=== PATIENT | female | born 1960 | race Caucasian/White ===

== ENCOUNTER 2016-12-02 15:32 | Inpatient (IN) | payer OTHER ==
--- NOTE | ~2016-12-02 | CR72 ---
[facility] A Service of [facility] RADIOLOGY TEXT RESULTS PATIENT: ANAYA STOVALL LOCATION: [facility] 564-01 : [birth year] UNIT #: [id number] AGE: [address]: Hu Hampton MD SEX: F ORDER DR: [id number] [facility] [address] [facility]. [place], [place] [address] [id number] I MR#: [id number] Acc #: [id number] NAME: ANAYA STOVALL : 1960 SEX: F STUDY DATE/TIME: 12/14/2016 7:25 UNIT: [facility] ROOM: [facility] STUDY DESCRIPTION: CR Chest Single View Portable Attending Physician: Hu Hampton M.D. Ordering Physician: Hu Hampton M.D. Primary Care Physician: Paolo Mack M.D. MEDICAL IMAGING REPORT This report is preliminary unless electronic signature is present EXAM AP portable chest DATE 12/14/2016 at 07:25 HISTORY 56-year-old female recent history of shortness of breath and respiratory failure. Additional history states infiltration. COMPARISON AP portable chest 12/10/2016. FINDINGS The ill-defined interstitial opacity seen within both lungs appear improved. There is a new band-like subsegmental atelectasis in the right base, however. No dense lung consolidations are identified. Right chest wall eli-catheter extends into the caval atrial junction. Previously described small bilateral pleural effusions are thought to be resolved. Heart size is normal. Improved aeration in the retrocardiac left lower lobe with some residual linear subsegmental atelectasis remaining. Surgical changes within the cervical spine. IMPRESSION 1. Continued interval improvement in interstitial disease in both lungs may represent improving interstitial edema. 2. Resolution of previously described bilateral pleural effusions. 3. Significantly improved aeration of the retrocardiac left lower lobe with subsegmental atelectasis remaining. 4. Development of band-like subsegmental atelectasis in the right lower lobe since 12/10/2016. Dictated by... [facility] A Service of [facility] RADIOLOGY TEXT RESULTS PATIENT: ANAYA STOVALL LOCATION: [facility] 564-01 : [birth year] UNIT #: [id number] AGE: [address]: Hu Hampton MD SEX: F ORDER DR: Alberta Kamara M.D. THIS IS AN ELECTRONICALLY VERIFIED REPORT Alberta Kamara M.D. at 12/15/2016 8:[address] [facility]/kp TD: 12/14/2016 13:08 JOB #: [id number] MEDICAL IMAGING REPORT Page 1 of 1 COPY
--- NOTE | ~2016-12-02 | CO ---
Unit #: [id number] #: [id number] Patient: ANAYA STOVALL [id number] [facility] [address] [facility]. [place], [place] [address] [id number] I MR#: [id number] NAME: ANAYA STOVALL ROOM: 564 Age: 56 Sex: F Admission Date: 12/02/2016 : 1960 Attending Physician: Hu Hampton M.D. Primary Care Physician: Paolo Mack M.D. Consultation Date: 12/07/2016 CONSULTATION REPORT PRIMARY CARE PHYSICIAN Not listed. REASON FOR CONSULTATION Altered mental status. PATIENT IDENTIFICATION This is a 56-year-old female, evaluated in ICU room 16 at [facility]. SOURCE OF INFORMATION Obtained from the patient's medical record and medical staff. HISTORY OF PRESENT ILLNESS This is a 56-year-old female with past medical history of IBS and chronic pain, recent neck surgery, who presents to [facility] with unresponsiveness and hypoglycemia with a blood sugar of 38, admitted for severe sepsis, perforated viscus, acute kidney injury, UTI, acute respiratory failure. She is status post surgery on 12/03/2016 on hospital day 2. Neurology is asked to further evaluate if the patient's mental status is not improving off the ventilator. She was extubated earlier this week. According to family at the bedside, her baseline mental status prior to being ill is that she is alert and oriented x4. She is independent with daily activities of living. Works outside the home at [employer] and is fully oriented and appropriate. At the time of evaluation, the patient is resting in bed comfortably, in no apparent distress. She opens her eyes and visually tracks, but is minimally verbal. Initially does not follow commands, but mimics; however, with further stimulation and with help from physical therapy, she sits up on the side of the bed, initially unsteady but was able to steady herself with persistence. She does answer some questions. She names and identifies and can follow some verbal commands, though she is very slow to respond. She is not oriented to person, place, or time currently. Head CT was done initially on 12/02/2016 on hospital day one, which was without contrast and did not show any demonstrable acute intracranial abnormality. There is mild paranasal sinus mucosal thickening particularly in the bilateral ethmoid sinuses. The patient is unable to contribute to the history or review of systems given her current mental status. PAST MEDICAL HISTORY 1. Admission to [facility] about 6 weeks ago for neck surgery by Dr. Elmer Bustillos with Neurosurgery, records not available. 2. Irritable bowel syndrome. Unit #: [id number] #: [id number] Patient: ANAYA STOVALL 3. Chronic pain. 4. Neck surgery. 5. Hysterectomy. 6. section. 7. Colonoscopy 5+ years ago. 8. Alcohol abuse. FAMILY HISTORY Positive for malignancy per the medical record. SOCIAL HISTORY The patient is , lives with her . She smokes one pack per week of tobacco. She is a daily drinker, has 2 to 3 mixed drinks daily. No reported illicit drug use. ALLERGIES No known drug allergies. HOME MEDICATIONS Include zolpidem, hydrocodone, gabapentin, Flexeril. Hospital medications currently include Zosyn, TPN, Diflucan, Zofran and morphine both p.r.n., Protonix, acetaminophen, IV fluids. REVIEW OF SYSTEMS A 14-point review of systems was attempted, but the patient is unable to contribute to history or review of systems given her mental status. PHYSICAL EXAMINATION VITAL SIGNS: Temperature 97.9. She has been afebrile for the last several days. Her last elevated temperature was on 12/04/2016. Pulse 88, respirations 22, blood pressure 130/71. Looking back at her blood pressure, she was initially hypotensive. She did have some episodes of hypotension with her lowest pressure being on hospital day two of 73/48. She has been normotensive for the last several days. Oxygen saturation 93%. Height 5 feet 6 inches, weight 122 pounds, BMI 20. NEUROLOGIC: The patient is awake. She is alert, but minimally verbal. Slow to answer and follow commands. Please see above. She is not oriented, initially only mimics, but is able to follow verbal commands with further stimulation and persistence. She can name and identify. Speech appears to be clear, but she is slow to respond. She appears to be encephalopathic. Cranial nerve exam, she responds to threats in the primary and peripheral visual sanchez. Eyes are conjugate without ptosis or nystagmus. Extraocular movements are intact. Unable to fully evaluate sensation of face and scalp. Strength of muscles of facial expression is unremarkable. Hearing is intact to voice. Tongue is midline. Unable to fully visualize uvula and palate. Head turning is unremarkable. Shoulder shrug is unremarkable. Neck is supple. Motor exam, she demonstrates normal bulk and tone. Strength is essentially equal as far as her rn ed. She does not fully follow commands when assessing arm and leg strength, but she does move all extremities equally and spontaneously, but unable to fully assess against gravity given her inability to fully cooperate. Gait and Romberg deferred. Reflexes, 1/4. Toes are equivocal. Coordination, unable to fully assess coordination. She initially is unsteady when sitting up and requires assistance, but once she sits up for a minute or two, she is able to hold herself up without falling over. She does not fully follow commands consistently, thus assessing for extremity ataxia is difficult. No tremors or myoclonus seen. Unit #: [id number] #: [id number] Patient: ANAYA STOVALL DIAGNOSTIC STUDIES IMAGING STUDIES: Please see above for CT imaging. LABORATORY RESULTS: Blood cultures final, no growth after 5 days x2 sets. Today CMP shows sodium of 142, potassium 3.3, chloride 103, CO2 of 34, glucose 165, BUN 17, creatinine 0.8, estimated GFR 83.1, calcium 7.5, AST 50, ALT 57, alkaline phosphatase 69, total protein 4.6, albumin 1.9, phosphorus 1.4, magnesium 1.2. Today CBC shows a white count of 11.8, hemoglobin 10, hematocrit 30.2, platelet count 158. Arterial blood gas from 12/06/2016 shows a pH 7.30, pCO2 of 48.5, pO2 of 104. She has had urine culture final, no growth after 48 hours from 12/02/2016. Acetaminophen level less than 10. Salicylate level 9 on arrival. Urine drug screen on arrival was positive for opioids. White count on arrival 10.1. IMPRESSION 1. Toxic and metabolic encephalopathy. 2. Perforated viscus with peritonitis, status post exploratory laparotomy. 3. Acute respiratory failure. 4. Sepsis. 5. Acute kidney injury. 6. Alcohol abuse. 7. Aphasia. PLAN We will observe the patient. If no improvement, we will consider MRI of the brain to rule out hypoxia, the likely toxic and metabolic encephalopathy. Must consider hypoxia in a patient who has presented very critically ill and had episodes of hypotension. She was also intubated and underwent surgery. At this time, she is not a good candidate for an MRI as I do not want to sedate her and she is not able to follow commands. We will give her time and further recommendations to be made pending further clinical course. Again if she does not improve, we will request MRI of the brain to further evaluate. She is improving, but again she is not back to her baseline. Further recommendations to be made pending further clinical course. Case was discussed with Dr. Zhang who agrees with above. Dictated by... Latanya Ely A.P.R.N. for Belinda Godinez/divina TD: 12/10/2016 05:14 JOB #: [id number] CONSULTATION REPORT Page 1 of 1 X Latanya Ely ONION TOPPER X CONSULTATION REPORT
--- NOTE | ~2016-12-02 | EKG ---
PATIENT: ANAYA STOVALL UNIT #: [id number] Ventricular Rate: 100 BPM Atrial Rate: 100 BPM P-R Interval: 128 ms QRS Duration: 96 ms Q-T Interval: 356 ms QTC Calculation(Bezet): 459 ms P [place]: 83 degrees Calculated R [place]: 76 degrees Calculated T [place]: 77 degrees Diagnosis Line: Normal sinus rhythm Diagnosis Line: Normal ECG Diagnosis Line: No previous ECGs available Diagnosis Line: Confirmed by MARK REYES MD ([id number]) on 12/03/2016 Diagnosis Line: 4:46:25 PM INTERPRETING MD: AMY REY
--- NOTE | ~2016-12-02 | CR72 ---
[facility] A Service of [facility] RADIOLOGY TEXT RESULTS PATIENT: ANAYA STOVALL LOCATION: [address]16 : [birth year] UNIT #: [id number] AGE: [address]: Gloria Pena MD SEX: F ORDER DR: [id number] [facility] [address] [facility]. [place], [place] [address] [id number] I MR#: [id number] Acc #: [id number] NAME: ANAYA STOVALL : 1960 SEX: F STUDY DATE/TIME: 12/03/2016 4:35 UNIT: [facility] ROOM: [facility] STUDY DESCRIPTION: CR Chest Single View Portable Attending Physician: Gloria Pena M.D. Ordering Physician: lGoria Pena M.D. Primary Care Physician: Paolo Mack M.D. MEDICAL IMAGING REPORT This report is preliminary unless electronic signature is present EXAM Portable chest INDICATION Follow up surgery, shortness of air. Follow up endotracheal tube. FINDINGS This portable view of the chest is compared with yesterday's study. The endotracheal tube tip is 1 cm above the rianna. Central venous catheter tip is in the superior vena cava. The heart size is normal and the lungs are clear. Dictated by... Wale Blackmon M.D. THIS IS AN ELECTRONICALLY VERIFIED REPORT Wale Blackmon M.D. at 12/03/2016 1:53 PM MISTI/maria elena TD: 12/03/2016 12:22 JOB #: [id number] MEDICAL IMAGING REPORT Page 1 of 1 COPY
--- NOTE | ~2016-12-02 | CR72 ---
[facility] A Service of [facility] RADIOLOGY TEXT RESULTS PATIENT: ANAYA STOVALL LOCATION: [facility] 564-01 : [birth year] UNIT #: [id number] AGE: [address]: Hu Hampton MD SEX: F ORDER DR: [id number] [facility] [address] [facility]. [place], [place] [address] [id number] I MR#: [id number] Acc #: [id number] NAME: ANAYA STOVALL : 1960 SEX: F STUDY DATE/TIME: 12/09/2016 5:55 [facility] STUDY DESCRIPTION: CR Chest Single View Portable Attending Physician: Hu Hampton M.D. Ordering Physician: Italo Almazan M.D. Primary Care Physician: Paolo Mack M.D. MEDICAL IMAGING REPORT This report is preliminary unless electronic signature is present EXAM Portable AP view of the chest COMPARISON 12/07/2016, 08/06/2016. HISTORY 56-year-old female with dyspnea for 2 days. Respiratory failure and sepsis. Patient was found down. FINDINGS Anterior cervical fusion hardware is incompletely imaged but appears grossly stable. There is note of a right subclavian catheter, grossly stable in position with the tip terminating near the cavoatrial junction, possibly in high right atrium. Right internal jugular catheter has been removed. There has been interval removal of gastric suction tube. No evidence of pneumothorax. There has been significant decrease in size of left pleural effusion, now trace to small with decreased size of small right pleural effusion. Diffuse lung opacities also appear to have improved, possibly reflecting atelectasis or pneumonia. Cardiomediastinal silhouette is normal. IMPRESSION Marked improvement in left-sided pleural effusion, now trace with decreased size of small right pleural effusion. Diffuse lung opacities also appear improved, especially the lung bases, reflecting any combination of atelectasis or pneumonia. There has been removal of the right internal jugular catheter and the gastric suction tube with stable position of right subclavian catheter. Dictated by... [facility] A Service of [facility] RADIOLOGY TEXT RESULTS PATIENT: ANAYA STOVALL LOCATION: [facility] 564-01 : [birth year] UNIT #: [id number] AGE: [address]: Hu Hampton MD SEX: F ORDER DR: Lencho Marino M.D. THIS IS AN ELECTRONICALLY VERIFIED REPORT Lencho Marino M.D. at 12/14/2016 8:58 PM BLM/pcl TD: 12/09/2016 10:10 JOB #: [id number] MEDICAL IMAGING REPORT Page 1 of 1 COPY
--- NOTE | ~2016-12-02 | OR ---
Unit #: [id number] #: [id number] Patient: ANAYA STOVALL [id number] [address] [place], [place] [address] [id number] I MR#: [id number] NAME: ANAYA STOVALL ROOM: 564 Date of Procedure: 12/11/2016 Admission Date: 12/02/2016 Surgeon: Glenn Calderon M.D. : 1960 Attending Physician: Hu Hampton M.D. Primary Care Physician: Paolo Mack M.D. PROCEDURE OPERATIVE NOTE INDICATION FOR PROCEDURE Pneumonia. PROCEDURE PERFORMED Diagnostic and therapeutic bronchoscopy with bronchial washing. FINDINGS Extensive amount of large thick greenish mucus plugs at the level of the mid trachea, rianna, right main bronchus, right lower lobe, left lower lobe and lingula. ANESTHESIA MAC anesthesia. PROCEDURE An informed consent was obtained from the after explaining the benefits and risks of this procedure. The patient was prepped and positioned in appropriate way. The bronchoscope was advanced through the oral cavity and at the level of the vocal cord 1% lidocaine was instilled and the bronchoscope was advanced through the vocal cord inside the trachea, which appeared normal except for copious amount of thick mucus secretion, which was lavaged and aspirated. Then at the level of the rianna and bronchus lidocaine was instilled and again a copious amount of secretion was noted, which was lavaged. Then the bronchoscope was advanced to the right main bronchus and the right upper lobe, right middle lobe and right lower lobe were examined thoroughly and appeared normal in terms of mucosa, but the patient also had a lot of secretions which were lavaged and the bronchoscope was retracted and then readvanced into the left main bronchus. The left lower lobe appeared erythematous with extensive amount of plug that was also lavaged and aspirated. The lingula and left upper lobe also were examined. The bronchoscope was retracted then and the patient tolerated her procedure well. Bronchial lavage was obtained from the left lower lobe, which will be sent for microbiology. Dictated by... Glenn Calderon M.D. EA/gz Unit #: [id number] #: [id number] Patient: ANAYA STOVALL TD: 12/12/2016 09:46 JOB #: [id number] PROCEDURE OPERATIVE NOTE Page 1 of 1 X GLENN CRUZ MD PROCEDURE OPERATIVE NOTE
--- NOTE | ~2016-12-02 | CR264 ---
[facility] A Service of [facility] RADIOLOGY TEXT RESULTS PATIENT: ANAYA STOVALL LOCATION: [address]-16 : [birth year] UNIT #: [id number] AGE: [address]: Hu Hampton MD SEX: F ORDER DR: [id number] [address] [place], [place] [address] [id number] I MR#: [id number] Acc #: [id number] NAME: ANAYA STOVALL : 1960 SEX: F STUDY DATE/TIME: 12/05/2016 14:45 UNIT: [facility] ROOM: [facility] STUDY DESCRIPTION: CR Upper GI Series W KUB Attending Physician: Hu Hampton M.D. Ordering Physician: Noble Tenorio M.D. Primary Care Physician: Paolo Mack M.D. MEDICAL IMAGING REPORT This report is preliminary unless electronic signature is present EXAM NG tube insertion under fluoroscopy HISTORY Unable to pass the feeding tube PROCEDURE The patient was explained the procedure and informed written consent obtained. Under fluoroscopic control, a nasogastric tube was inserted through the right nares and advanced into the gastric antrum without difficulty. Spot radiograph was obtained confirming position. A single spot radiograph was obtained. Total fluoroscopy time was 0.3 minutes. Dictated by... Noble Gonzáles M.D. THIS IS AN ELECTRONICALLY VERIFIED REPORT Noble Gonzáles M.D. at 12/07/2016 7:14 AM VIJAY/kp TD: 12/06/2016 12:51 JOB #: [id number] MEDICAL IMAGING REPORT Page 1 of 1 COPY
--- NOTE | ~2016-12-02 | CT4 ---
[facility] A Service of [facility] & [facility] RADIOLOGY TEXT RESULTS PATIENT: ANAYA STOVALL LOCATION: [address]16 : [birth year] UNIT #: [id number] AGE: [address]: Hu Hampton MD SEX: F ORDER DR: [id number] [facility] [address] [place], [place] [address] [id number] I MR#: [id number] Acc #: [id number] NAME: ANAYA STOVALL : 1960 SEX: F STUDY DATE/TIME: 12/02/2016 18:02 UNIT: [facility] ROOM: [facility] STUDY DESCRIPTION: CT Abd and Pelv Wo Cont Attending Physician: Gloria Pena M.D. Ordering Physician: Mulu Sanchez M.D. Primary Care Physician: Paolo Mack M.D. MEDICAL IMAGING REPORT This report is preliminary unless electronic signature is present EXAM CT of the abdomen and pelvis without contrast dated 12/02/2016 COMPARISON Single view of the abdomen dated 12/02/[address] chest without contrast dated 12/02/2016. HISTORY Patient is unresponsive and probably had GI bleed today. FINDINGS CT of the abdomen and pelvis were obtained without IV or oral contrast, in the axial plane followed by sagittal and coronal reformats. This CT exam was performed with one or more of the following radiation dose reduction techniques: automatic control, adjustment of mA and/or kV according to patient size, and iterative reconstruction. There are large quantities of free fluid noted in the abdomen and in the pelvis. Large free intraperitoneal air is also seen. There are predominantly nondistended colonic loops. Some slightly distended small bowel loops are noted in the mid abdomen. A definitive site of perforation could not be discerned in the current study. Lack of IV contrast limits evaluation of solid organs. Grossly the liver, adrenal glands, pancreas and the kidneys do not demonstrate any significant abnormality. Small spleen is seen. There is slightly hyperdense gallbladder which could be related to dense bile within it or mild hemorrhage within it. The free air is predominantly noted intraperitoneally and in upper to mid abdomen with relative decrease in the lower abdomen. No obvious aneurysmal dilatation is seen. Mild degenerative changes are noted in the spine. PELVIS: Galvan catheter decompresses the urinary bladder. Rectosigmoid colon appears to be grossly intact with significant free fluid around it. [facility]. [facility] A Service of [facility] & [facility] RADIOLOGY TEXT RESULTS PATIENT: ANAYA STOVALL LOCATION: [facility]3-16 : 62 UNIT #: [id number] AGE: [address]: Hu Hampton MD SEX: F ORDER DR: IMPRESSION 1. Significantly abnormal study. 2. Large amounts of free intraperitoneal air and large amount of free fluid are noted in the abdomen and pelvis most suspicious for perforation of the hollow viscus. 3. There is not much free air or fluid noted in the retroperitoneum. 4. Increased density is noted within the gallbladder. It could be related to dense bile or some hemorrhage within it. No well-defined calcifications to suggest gallstones. 5. Refer to the detailed report. 6. Findings were discussed with Dr. Mulu Sanchez at 07:10 p.m. on 12/02/2016. Dictated by... Jose Mishra M.D. THIS IS AN ELECTRONICALLY VERIFIED REPORT Jose Mishra M.D. at 12/04/2016 5:09 PM CPR/rnr TD: 12/03/2016 03:14 JOB #: [id number] MEDICAL IMAGING REPORT Page 1 of 1 COPY
--- NOTE | ~2016-12-02 | EKG ---
PATIENT: ANAYA STOVALL UNIT #: [id number] Ventricular Rate: 108 BPM Atrial Rate: 108 BPM P-R Interval: 116 ms QRS Duration: 82 ms Q-T Interval: 382 ms QTC Calculation(Bezet): 511 ms P [place]: 70 degrees Calculated R [place]: 63 degrees Calculated T [place]: 72 degrees Diagnosis Line: Sinus tachycardia Diagnosis Line: Prolonged QT Diagnosis Line: Abnormal ECG Diagnosis Line: When compared with ECG of 02-DEC-2016 16:13, Diagnosis Line: QRS voltage has decreased Diagnosis Line: QT has lengthened Diagnosis Line: Confirmed by DARYL MOORE MD ([id number]) on Diagnosis Line: 12/04/2016 5:51:30 PM INTERPRETING MD: ALEXANDER
--- NOTE | ~2016-12-02 | CO ---
Unit #: [id number] #: [id number] Patient: ANAYA STOVALL [id number] [address] [address] [id number] I MR#: [id number] NAME: ANAYA STOVALL ROOM: [facility] Age: 56 Sex: F Admission Date: 12/02/2016 : 1960 Attending Physician: Gloria Pena M.D. Primary Care Physician: Paolo Mack M.D. CONSULTATION REPORT REASON FOR CONSULTATION Respiratory failure, critical care management. CHIEF COMPLAINT Unresponsiveness and possible GI bleed. 56-year-old female with a past medical history of irritable bowel syndrome, chronic pain, presented with a complaint of unresponsiveness. According to the hospital, she was complaining of vomiting and not feeling well two days ago. Helped her to the bathroom and she passed out and was brought to the emergency room. Was found to be severely hypoxic and was intubated. Temperature is 94. The patient has a pH of 6.89 and currently on a ventilator, sedated, intubated and being resuscitated. I am seeing her at the bedside. REVIEW OF SYSTEMS Unobtainable. PAST MEDICAL HISTORY 1. Irritable bowel syndrome. 2. Chronic pain. SURGICAL HISTORY 1. Neck surgery. 2. Hysterectomy. 3. . 4. Colonoscopy. SOCIAL HISTORY Smokes a pack of cigarettes per day. Daily drinker. FAMILY HISTORY Positive for malignancy. ALLERGIES No known drug allergies. MEDICATIONS 1. Zolpidem. 2. Hydrocodone. 3. Gabapentin. 4. Flexeril. PHYSICAL EXAMINATION Unit #: [id number] #: [id number] Patient: ANAYA STOVALL VITAL SIGNS: Temperature currently is 93, pulse is 140, respirations 16, blood pressure is 90/70. NEUROLOGICAL: Sedated, intubated. CVS: S1+ S2. RESPIRATIONS: Bilateral air entry, bilateral mild rhonchi. GI: Distended. Bowel sounds sluggish. EXTREMITIES: No edema. DIAGNOSTIC STUDIES Labs and imaging pending. ASSESSMENT AND PLAN 1. Acute respiratory failure. 2. Unresponsiveness. 3. Severe acidosis. 4. Acute renal failure. 5. Likely perforated viscus. 6. Hyperkalemia. 7. Urinary tract infection. 8. Chronic pain. 9. Tobacco use. Plan is to continue ventilator support. IV fluids, IV antibiotics. Surgical and nephrology consultation. GI and DVT prophylaxis. Please see orders for additional plan. Thank you very much for this consultation. We will continue to follow patient. Dictated by... Belinda Dunaway TD: 12/03/2016 12:43 JOB #: [id number] CONSULTATION REPORT Page 1 of 1 X Rei Ryan MD X CONSULTATION REPORT
--- NOTE | ~2016-12-02 | CR72 ---
[facility] A Service of [facility] RADIOLOGY TEXT RESULTS PATIENT: ANAYA STOVALL LOCATION: [facility] : [birth year] UNIT #: [id number] AGE: [address]: Hu Hampton MD SEX: F ORDER DR: [id number] [facility] [address] [place], [place] [address] [id number] I MR#: [id number] Acc #: [id number] NAME: ANAYA STOVALL : 1960 SEX: F STUDY DATE/TIME: 12/03/2016 13:06 UNIT: [facility] ROOM: [facility] STUDY DESCRIPTION: CR Chest Single View Portable Attending Physician: Gloria Pena M.D. Ordering Physician: Rei Ryan M.D. Primary Care Physician: Paolo Mack M.D. MEDICAL IMAGING REPORT This report is preliminary unless electronic signature is present EXAM Portable chest 12/03/16 COMPARISON Same date. HISTORY Shiley catheter placement. TECHNIQUE An AP view is obtained. FINDINGS Cardiac size in the patient is stable examination shows consolidation and volume loss at the left base. Lungs otherwise are clear. There is a new right-sided Shiley with the tip at the cavoatrial junction. Right-sided subclavian line terminates at the cavoatrial junction as well. ET tube and NG tube are in good position. CONCLUSION Interim insertion of a right-sided shallow with the tip at the cavoatrial junction. No pneumothorax. Dictated by... Noble Gonzáles M.D. THIS IS AN ELECTRONICALLY VERIFIED REPORT Noble Gonzáles M.D. at 12/07/2016 7:15 AM VIJAY/robert TD: 12/03/2016 20:53 [facility] A Service of [facility] RADIOLOGY TEXT RESULTS PATIENT: ANAYA STOVALL LOCATION: [facility]316 : [birth year] UNIT #: [id number] AGE: [address]: Hu Hampton MD SEX: F ORDER DR: JOB #: [id number] MEDICAL IMAGING REPORT Page 1 of 1 COPY
--- NOTE | ~2016-12-02 | CO ---
Unit #: [id number] #: [id number] Patient: ANAYA CHRISTENSEN [id number] [address] [place], [place] [address] [id number] I MR#: [id number] NAME: ANAYA CHRISTENSEN ROOM: [facility] Age: 56 Sex: F Admission Date: 12/02/2016 : 1960 Attending Physician: Hu Hampton M.D. Primary Care Physician: Paolo Mack M.D. Consultation Date: 12/03/2016 CONSULTATION REPORT REASON FOR CONSULTATION Acute renal failure. HISTORY OF PRESENT ILLNESS Ms. Frannie Christensen is a 56-year-old white female with a past medical history of irritable bowel syndrome and chronic pain, on opioids, who presented to the hospital with a shock. The story is, the patient had been having her typical irritable bowel symptoms and then went to bed. The pain that she had was described as starting on 11/30/2016. She asked her to help her to the bathroom. When he did, that she passed out. EMS was called and she had to be intubated in the field. Her presenting ABG to the emergency room showed a pH of 6.89, pCO2 of 56, pO2 of 301. Her presenting BUN and creatinine were 78 and 4.7. Her lactic acid was 11.4. Her anion gap was 29. CT scan of the abdomen showed free air in the abdomen. She was already intubated, continued on the vent and pressor support. She was given about 5 amps of sodium bicarbonate and her next ABG had improved. She was continued on normal saline fluid resuscitation. She did not require any blood products. Surgery was consulted immediately, but she was unstable to take to surgery. Overnight, she continued in the ICU with pressor support and IV fluids. She has made roughly 200 mL of urine with about 5 L of input. PAST MEDICAL HISTORY 1. Irritable bowel syndrome. 2. Chronic pain. 3. Tobacco abuse. PAST SURGICAL HISTORY 1. Recent neck surgery at [facility] with Dr. Bustillos. 2. Hysterectomy. 3. History of . 4. Colonoscopy 5 years ago. SOCIAL HISTORY The patient is . Lives with her . She smokes one pack of cigarettes per week. She drinks 2 to 3 mixed drinks every day. FAMILY HISTORY There is a family history of cancer. HOME MEDICATIONS Include Flexeril, gabapentin, hydrocodone, zolpidem. Unit #: [id number] #: [id number] Patient: ANAYA CHRISTENSEN REVIEW OF SYSTEMS Unobtainable. DIAGNOSTIC STUDIES IMAGING STUDIES: A CT of the chest shows a large amount of free air within the abdomen. LABORATORY RESULTS: Shows an ABG of 7.477, pCO2 of 30, PO2 of 82, bicarbonate of 22. Glucose of 94, BUN 77, creatinine 3.8, sodium 134, potassium 4.6, chloride 96, bicarbonate 21, calcium 6, phosphorus 6.7, magnesium 1.6, albumin is 1.8. CPK total is 3302. Lactic acid is 3.2. Current CBC; white blood cell count 6.2, hemoglobin 12.6, hematocrit 37.4, platelet count 282. Tox screen shows positive opioids, the rest negative. Urinalysis showed negative nitrites, trace leukocyte esterase, 3+ protein, 3+ blood, red blood cells 5 to 10, white blood cell count 10 to 25. Current medicines are Zosyn and Levophed. DICTATION ENDS HERE Please note: This report has been placed on the patient's electronic medical record in an incomplete status following multiple physician notifications for a completion without a response or resolution. Dictated by... Brittney Porter M.D. ALMA/divina TD: 12/04/2016 08:17 JOB #: [id number] CONSULTATION REPORT Page 1 of 1 X Brittney Porter MD X CONSULTATION REPORT
--- NOTE | ~2016-12-02 | CR6 ---
[facility] Service of [facility] & [facility] RADIOLOGY TEXT RESULTS PATIENT: ANAYA STOVALL LOCATION: [facility] 564-01 : [birth year] UNIT #: [id number] AGE: [address]: Hu Hampton MD SEX: F ORDER DR: [id number] [facility] [address] [place], [place] [address] [id number] I MR#: [id number] #: [id number] NAME: ANAYA STOVALL : 1960 SEX: F STUDY DATE/TIME: 12/02/2016 16:19 UNIT: [facility] ROOM: [facility] STUDY DESCRIPTION: CR Abdomen Portable Sng View Attending Physician: Hu Hampton M.D. Ordering Physician: Mulu Sanchez M.D. Primary Care Physician: Paolo Mack M.D. MEDICAL IMAGING REPORT This report is preliminary unless electronic signature is present REVISED REPORT SEE ADDENDUM EXAM Single view of the abdomen dated 12/02/[address] abdomen pelvis dated 07/22/2002 and single view of the chest dated 12/02/2016. HISTORY NG tube placement. FINDINGS Single view of the abdomen was obtained. There is an NG tube which extends past the GE junction to the region of the mid body of the stomach. There is nonspecific but nonobstructive bowel gas pattern seen. Bones do not demonstrate any significant abnormality. There are thin linear opacities noted in the region of the right upper quadrant of the abdomen, in the region of the liver. It is of uncertain clinical significance based on this modality. No obvious abnormality was discerned in the CT abdominal study from 2002, like calcifications in this region. Depending on clinical concern for acute abdominal findings CT can be considered. The NG tube itself appears to be adequate in position. Dictated by... Jose Mishra M.D. THIS IS AN ELECTRONICALLY VERIFIED REPORT Jose Mishra M.D. at 12/04/2016 5:09 PM CPR/rnr TD: 12/02/2016 23:33 [facility] A Service of [facility] & [facility] RADIOLOGY TEXT RESULTS PATIENT: ANAYA STOVALL LOCATION: [facility] 564-01 : [birth year] UNIT #: [id number] AGE: [address]: Hu Hampton MD SEX: F ORDER DR: JOB #: [id number] ADDENDUM There are air pockets noted in the lateral and upper aspect of the right side of the abdomen which though could represent colonic air, it could also be free air. It is unclear if this image was obtained in the supine or upright position. No free air is seen immediately under the diaphragm. STAT * RESULT Dictated by... Jose Mishra M.D. THIS IS AN ELECTRONICALLY VERIFIED REPORT Jose Mishra M.D. at 12/11/2016 8:30 PM CPR/rnr TD: 12/07/2016 18:27 JOB #: [id number] CC: Nae/socrates Please Delete MEDICAL IMAGING REPORT Page 1 of 1 COPY
--- NOTE | ~2016-12-02 | FU ---
[facility] Nutrition Therapy DATE: 12/11/16 Patient: ANAYA STOVALL Physician: ALISSA Address: [address] Room/Bed: [address] [place] [address], Zip: [place] [address] Admit Date: 12/02/16 Date of : [birth year] Height: 5 6 Weight: 126 57.4 NUTRITION MONITORING/FOLLOW-UP: Reason: PT SEEN FOR TPN FOLLOW-UP DX: UNRESPONSIVENESS, PERFORATED DUODENAL ULCER S/P EXPLORATORY LAPAROTOMY AND REPAIR Anthropometrics: 5'6", WT: 126# (57 KG), BMI: 20.3 -WEIGHTS HAVE BEEN STABLE SINCE ADMIT Labs: GLU: 155, CREAT: 0.5, CA+:7.8, ALB: 2.2, AST: 51, ALT: 68, TGs: 273, LIPASE: 69 Meds: TPN, MAG SULFATE, ZOFRAN, KCL, PROTONIX I&O's: 2940/2475 Skin: PREVIOUSLY MENTIONED-MIDLINE SURGICAL INCISION TO ABD Estimated Nutrition Needs: [phone] KCAL 95-114 G PRO Assessment: CHART REVIEWED AND EVENTS NOTED. PT SEEN FOR TPN FOLLOW-UP. PT IS S/P BRONCHOSCOPY THIS AM. PT RECEIVING TPN (DAY 5 2'PERFORATED BOWEL) 25% DEXTROSE/5% AA @ 75 ML/HR W/NO LIPIDS. PT ALSO RECEIVING MECHANICAL GROUND + THIN LIQUIDS. PER FAMILY, PT TOOK BITES OF LUNCH MEAL TODAY. PT SLEEPY/LETHARGIC AT TIME OF VISIT. RD ENCOURAGED SLOW GRADUAL PO INTAKE + SUPPLEMENTS, PT AGREED TO MAGIC CUP BID W/MEALS. RD TO ORDER. FAMILY REPORTED NO DIET QUESTIONS AT THIS TIME. RD TO CONTINUE TO FOLLOW. Dx: INADEQUATE PROTEIN-ENERGY INTAKE R/T CLINICAL CONDITION, BOWEL SURGERY AEB NPO STATUS.-IN PROGRESS Intervention: 1. TPN 2. MECHANICAL GROUND DIET + THINS 3. MAGIC CUP BID + 6 SMALL MEALS Monitoring, Evaluation and Goals: 1. ENTERAL NUTRITION; INITIATE, PROVIDE >80% GOAL VOLUME X 24 HOURS-NOT ACTIVE 2. IMPROVE LABS; BUN, CREAT, NA+, AST, ALT, TRIG, LIPASE, GFR-IN PROGRESS 3. GI; PROMOTE REGULAR GI FUNCTION-NOT MET 4. SKIN; PROMOTE HEALING-IN PROEGRESS 5. WEIGHT; PREVENT UNINTENTIONAL WEIGHT LOSS-IN PROEGRESS 6. TPN; TOLERATE/RECEIVE >80% ESTIMATED NEEDS-IN PROGRESS/MET NO NEW GOALS MONITOR: [facility] Nutrition Therapy DATE: 12/11/16 Patient: ANAYA STOVALL Physician: ALISSA Address: [address] Room/Bed: [address] [place] [address], Zip: [place] [address] Admit Date: 12/02/16 Date of : [birth year] Height: 5 6 Weight: 126 57.4 -TPN RATE/TOLERANCE -WEIGHTS -ORAL INTAKE/APPETITE? -LABS Recommendations: 1. ENCOURAGE SLOW GRADUAL PO INTAKE PER PT TOLERANCE. ORDER MAGIC CUP BID W/MEALS + 6 SMALL MEALS 2. CONTINUE CURRENT TPN 25% DEXTROSE, 5% AA @ 75 ML/HR -PROVIDES 90 G PRO, 1530 NON-PROTEIN KCAL, 1890 TOTAL KCAL (GUR: 4.9) WEAN TPN IF PT CONSUME ~50% OF MEALS 3. RECOMMEND TO HOLD LIPIDS. TGs NOTED TO BE 273 (ELEVATED-12/03/16). 4. CONTINUE TO MONITOR ELECTROLYTES AND GLUCOSE LEVELS CLOSELY. RD WILL F/U PER PROTOCOL PT IS MOD/SEVERELY COMPROMISED Respectfully, KEISHA AMES MS, RD, LD [facility] cc: client file
--- NOTE | ~2016-12-02 | A ---
[facility] Nutrition Therapy DATE: 12/04/16 Patient: ANAYA STOVALL Physician: ALISSA Address: [address] Room/Bed: [address], Zip: [place] [address] Admit Date: 12/02/16 Date of : [birth year] Height: 5 6 Weight: 139 63.5 NUTRITIONAL ASSESSMENT: REASON: NPO status in ICU 56 yo female admitted for unresponsiveness and perforated duodenal ulcer s/p exploratory laparatomy and repair PMH: IBS, chronic pain, neck surgery, smoker, daily drinker (2-3 drinks/day) Anthropometrics: Ht: 5'6" Wt: 63.5 kg BMI: 22.6 Labs: Na+ 131 BUN 38 Creat 2.3 Ca++ 5.9 AST 142 ALT 91 Accuchecks 79 Trig 273 Lipase 69 GFR 23.2 Meds: Fentanyl, NaCl, versed, D5%, MgSO4, protonix, zofran, phenergan I/O & Bowel function: 8677/990, last BM unknown, NGT Skin Integrity: Midline surgical incision to abdomen Edema: none noted Estimated Nutrition Needs: 5841-8245 kcals (25-30 kcals/kg) 95-114 grams protein (1.5-1.8 grams/kg) Assessment: Chart reviewed, events noted. Pt admitted for being found unresponsive and for perforated duodenal ulcer now intubated and sedated in the ICU, off pressors now. Sepsis and PARRIS also noted. Pt had 3 hrs of CRRT last night per RN report. Per renal MD note, pt will not receive HD today. BUN and creatinine have improved. Per RN report, the pt has bile content in her abdominal cavity. No family is in the room to provide nutritional history at this time. Per MD note, the pt had decreased appetite and abdominal pain since 11/30/16. NGT is not to suction at this time. Dx: Inadequate protein-energy intake RT clinical condition, bowel surgery AEB NPO status. Intervention: 1. EN once feasible Monitoring, Evaluation and Goals: 1. Enteral nutrition; initiate, provide >80% goal volume x 24 hrs 2. Improve labs; BUN, creat, Na+, AST, ALT, trig, lipase, GFR [facility] Nutrition Therapy DATE: 12/04/16 Patient: ANAYA STOVALL Physician: ALISSA Address: [address] Room/Bed: [address], Zip: [place] [address] Admit Date: 12/02/16 Date of : [birth year] Height: 5 6 Weight: 139 63.5 3. GI; promote regular GI function 4. Skin; promote healing 5. Weight; prevent unintentional weight loss Recommendations: 1. Once the pt is hemodynamically stable, recommend initiating enteral nutrition with Vital 1.5 @ 15 mL/hr + 30 mL Prostat once daily. Increase by 10 mL q 8 hrs as tolerated to goal of 50 mL/hr + 30 mL Prostat once daily to provide: 1900 kcals/ 96 grams protein/ 912 mL free H20. 2. RD will continue to follow and make appropriate recommendations based on hospital course. Pt is at severe nutritional risk. RD will follow up per protocol. Respectfully, SUNIL WHELAN RD, LD [facility] cc: client file
--- NOTE | ~2016-12-02 | CR72 ---
[facility] A Service of [facility] & [facility] RADIOLOGY TEXT RESULTS PATIENT: ANAYA STOVALL LOCATION: [facility] 564-01 : 62 UNIT #: [id number] AGE: [address]: Hu Hampton MD SEX: F ORDER DR: [id number] [facility] [address] [place], [place] [address] [id number] I MR#: [id number] #: [id number] NAME: ANAYA STOVALL : 1960 SEX: F STUDY DATE/TIME: 12/07/2016 8:00 UNIT: [facility] ROOM: [facility] STUDY DESCRIPTION: CR Chest Single View Portable Attending Physician: Hu Hampton M.D. Ordering Physician: Yulissa Calderon M.D. Primary Care Physician: Paloo Mack M.D. MEDICAL IMAGING REPORT This report is preliminary unless electronic signature is present EXAM Portable chest x-ray 12/07/2016 HISTORY Chest congestion. FINDINGS AP radiograph of the chest presented. Comparison 12/04/2016. There is a marked worsening in appearance of the thorax compared to prior study. Right internal jugular approach and subclavian approach central venous catheters are unchanged. Bikfqyiy-hi-fezkj right pleural effusion. Large left pleural effusion. These appear new compared to prior examination. Extensive bilateral airspace disease. Complete opacification of the lower half of the left hemithorax felt secondary to combination of airspace disease and the large effusion. Overall appearance suggests severe pulmonary edema with extensive interstitial airspace and pleural space components. Bilateral overwhelming pneumonia and parapneumonic effusions could be considered in the appropriate clinical context. There is no pneumothorax. Enteric tube extends below diaphragm and off field of radiograph. Patient has been extubated in the interval from prior study. Visualized cervical spine fixation hardware unchanged. No acute-appearing bony abnormality. Dictated by... Noble Landeros M.D. THIS IS AN ELECTRONICALLY VERIFIED REPORT Noble Landeros M.D. at 12/13/2016 10:15 AM SHER/maria elena TD: 12/07/2016 10:28 JOB #: [id number] [facility] A Service of [facility] & [facility] RADIOLOGY TEXT RESULTS PATIENT: ANAYA STOVALL LOCATION: [facility] 564-01 : [birth year] UNIT #: [id number] AGE: [address]: Hu Hampton MD SEX: F ORDER DR: MEDICAL IMAGING REPORT Page 1 of 1 COPY
--- NOTE | ~2016-12-02 | CT71 ---
[facility] A Service of [facility] RADIOLOGY TEXT RESULTS PATIENT: ANAYA STOVALL LOCATION: [address]16 : [birth year] UNIT #: [id number] AGE: [address]: Hu Hampton MD SEX: F ORDER DR: [id number] [facility] [address] [place], [place] [address] [id number] I MR#: [id number] Acc #: [id number] NAME: ANAYA STOVALL : 1960 SEX: F STUDY DATE/TIME: 12/02/2016 17:47 UNIT: [facility] ROOM: [facility] STUDY DESCRIPTION: CT Head Wo Contrast Attending Physician: Gloria Pena M.D. Ordering Physician: Mulu Sanchez M.D. Primary Care Physician: Paolo Mack M.D. MEDICAL IMAGING REPORT This report is preliminary unless electronic signature is present EXAM CT head without contrast dated 12/02/2016. COMPARISON None. HISTORY Unresponsive and possible GI bleed today. Patient was brought in ambulance today with blood sugar of 38. Patient is on vent. FINDINGS CT of the head was obtained without contrast in the axial plane. This CT exam was performed with one or more of the following radiation dose reduction techniques: automatic control, adjustment of mA and/or kV according to patient size, and iterative reconstruction. No acute intracranial hemorrhage, space-occupying mass, mass effect, midline shift or hydrocephalus. There is mild paranasal sinus mucosal thickening. Imaged mastoid air cells are well-aerated. Orbits and the ocular structures do not demonstrate any significant abnormality. Bones are within normal limits. IMPRESSION 1. No demonstrable acute intracranial abnormality. 2. Mild paranasal sinus mucosal thickening particularly in bilateral ethmoid sinuses. Dictated by... Jose Mishra M.D. THIS IS AN ELECTRONICALLY VERIFIED REPORT Jose Mishra M.D. at 12/04/2016 5:09 PM CPR/rnr [facility] A Service [facility] RADIOLOGY TEXT RESULTS PATIENT: ANAYA STOVALL LOCATION: [facility] CICCU3-16 : 62 UNIT #: [id number] AGE: [address]: Hu Hampton MD SEX: F ORDER DR: TD: 12/03/2016 00:37 JOB #: [id number] MEDICAL IMAGING REPORT Page 1 of 1 COPY
--- NOTE | ~2016-12-02 | DS ---
Unit #: [id number] #: [id number] Patient: ANAYA STOVALL [id number] [facility]. [place], [place] [address] [id number] I MR#: [id number] NAME: ANAYA STOVALL ROOM: 564 Age: 56 Sex: F Admission Date: 12/02/2016 : 1960 Discharge Date: 12/14/2016 Attending Physician: Hu Hampton M.D. Primary Care Physician: Paolo Mack M.D. DISCHARGE SUMMARY REASON FOR ADMISSION Unresponsive, blood sugar 38, GI bleed, sepsis present on admission secondary to hypovolemic shock. HISTORY OF PRESENT ILLNESS/HOSPITAL COURSE The patient is a 56-year-old female with an underlying history of irritable bowel syndrome, chronic pain, who presented with above. Please see H and P for complete details. Initial CT of the chest showed a large amount of free air that was present within the abdomen. Subsequently, patient was intubated after she was noted to be acutely acidotic and having acute hypoxic/hypercapnic respiratory failure. She was placed in ICU. Consultation was placed to [facility] initially secondary to concern for free air was well as possible perforated viscus. The patient underwent exploratory laparotomy by Dr. Draper. Please see his procedure note for complete details. After exploratory laparotomy, the patient had a postoperative diagnosis of perforated duodenal ulcer with massive spillage of bile and bile-stained contents within the abdomen. Through and postoperative, patient otherwise did well. She was gradually weaned off of ventilator. Consultation was placed to Dr. Ryan of intensive care services. Pulmonary services continued to follow the patient through her hospital course for the same. The patient ultimately underwent bronchoscopy secondary to acute respiratory failure. These ultimately did show MRSA in her bronch culture. ID services were consulted in light of antibiotic management and peritonitis. ID services have stated the patient has now completed all antibiotic course. No further antibiotics are required. Cardiac enzymes subsequently were elevated with a troponin of 0.48. Cardiology services were consulted. Dr. Ramos and associates saw and evaluated patient. No acute cardiac intervention was performed this hospital admission. It was felt it was likely secondary to hypotension. Unit #: [id number] #: [id number] Patient: ANAYA STOVALL The patient was gradually extubated, placed on telemetry floor. PT/OT services continued to work with the patient. She was transitioned from TPN to a regular diet. At this point in time, she is currently tolerating diet well. She is working with physical and occupational therapy and she appears clinically stable for transition to rehab facility. Moving forward, patient was strongly encouraged to abstain from alcohol as she has had alcohol abuse in the past. FINAL DISCHARGE DIAGNOSES 1. Septic shock, present on admission secondary to hypovolemia. 2. Perforated duodenal ulcer with resultant peritonitis, status post exploratory laparotomy with resultant repair. 3. Acute rhabdomyolysis, now resolved. 4. Acute hypoxic/hypercapnic respiratory failure, now resolved. 5. Acute kidney injury on admission, resolved. 6. Liver shock/transaminitis, now resolved. 7. Hypotension. 8. Lactic acidosis. 9. Elevated troponin. 10. Alcohol abuse. 11. Chronic deconditioning. Please note - the discharge laboratory studies do show a hemoglobin of 9.2 representing patient's baseline. BMP is otherwise unremarkable. The patient will be transitioned to rehab for ongoing care later this afternoon. FINAL DISCHARGE MEDICATIONS 1. Cymbalta 30 mg p.o. q. a.m. 2. Remeron 15 mg p.o. q. h.s. 3. Lortab 7.5/325, one tablet p.o. q.4 p.r.n. 4. Protonix 40 mg p.o. b.i.d. DISCHARGE CONDITION Stable. DISCHARGE DISPOSITION Rehab for ongoing care. Dictated by... Belinda Villeda/paul TD: 12/14/2016 12:34 JOB #: [id number] Unit #: [id number] #: [id number] Patient: ANAYA STOVALL DISCHARGE SUMMARY Page 1 of 1 X Hu Hampton MD X DISCHARGE SUMMARY
--- NOTE | ~2016-12-02 | CR63 ---
[facility] A Service of [facility] & [facility] RADIOLOGY TEXT RESULTS PATIENT: ANAYA STOVALL LOCATION: [facility] 564-01 : [birth year] UNIT #: [id number] AGE: [address]: Hu Hampton MD SEX: F ORDER DR: [id number] [facility] [address] [facility]. [place], [place] [address] [id number] I MR#: [id number] #: [id number] NAME: ANAYA STOVALL : 1960 SEX: F STUDY DATE/TIME: 12/10/2016 10:55 UNIT: [facility] ROOM: [facility] STUDY DESCRIPTION: CR Chest 2 View Attending Physician: Hu Hampton M.D. Ordering Physician: Rei Ryan M.D. Primary Care Physician: Paolo Mack M.D. MEDICAL IMAGING REPORT This report is preliminary unless electronic signature is present EXAM PA and lateral chest INDICATIONS Follow up shortness of breath and respiratory failure. COMPARISON STUDIES Comparison with yesterday. FINDINGS Decreased interstitial airspace opacities bilaterally. Stable small bilateral pleural effusions. Heart size stable. Stable central venous catheter. IMPRESSION Decreased bilateral interstitial airspace opacities. Dictated by... Chester Herring M.D. THIS IS AN ELECTRONICALLY VERIFIED REPORT Chester Herring M.D. at 12/11/2016 7:51 AM ARS/pcl TD: 12/10/2016 14:14 JOB #: [id number] MEDICAL IMAGING REPORT Page 1 of 1 COPY
--- NOTE | ~2016-12-02 | CO ---
Unit #: [id number] #: [id number] Patient: ANAYA STOVALL [id number] [address] [id number] I MR#: [id number] NAME: ANAYA STOVALL ROOM: CIC3 Age: 56 Sex: F Admission Date: 12/02/2016 : 1960 Attending Physician: Hu Hampton M.D. Primary Care Physician: Paolo Mack M.D. Consultation Date: 12/04/2016 CONSULTATION REPORT REASON FOR CONSULTATION Antibiotic management. HISTORY OF PRESENT ILLNESS This is a 56-year-old female who has a history of irritable bowel syndrome and chronic pain. She was admitted through the emergency room after she passed out at home. The patient is currently on the ventilator and unable to provide any history. However, the is at the bedside. The patient reports 48 hours prior to admission she was feeling ill and not acting herself. He denied her having any fever, but she then became weak and she passed out and then there was black fluid that came from her mouth. The patient was admitted through the emergency room. She was found to have rhabdomyolysis with abnormal electrolytes as well as free air on the CT scan. The patient was taken to the operating room, where she was found to have a perforated viscus, status post repair. She is currently on the ventilator in the ICU with pressor support. The patient did have some continuous dialysis over the evening. She has had some intermittent fever, but on admission her temperature was low at 94 degrees and infectious disease was asked to evaluate for further antibiotic management. The patient has been started on vancomycin and Zosyn and Mycamine and Flagyl have been added this day. PAST MEDICAL HISTORY 1. Recent neck surgery at [facility] [place]. 2. Irritable bowel syndrome. 3. Chronic pain. PAST SURGICAL HISTORY 1. Neck surgery. 2. Hysterectomy. 3. . 4. Colonoscopy. SOCIAL HISTORY The patient lives with others. There is positive tobacco abuse and alcohol abuse per the history of present illness. ALLERGIES No known drug allergies. CURRENT MEDICATIONS 1. Levophed. 2. Vancomycin. 3. Zosyn. Unit #: [id number] #: [id number] Patient: ANAYA STOVALL 4. Flagyl. 5. Mycamine. For further medications, please refer to the patient's MAR. REVIEW OF SYSTEMS Unable to obtain as the patient is currently on the ventilator. PHYSICAL EXAMINATION GENERAL: This is a no apparent distress female who is currently on the ventilator. VITALS: Temperature 99.6, t-max of 101.3 and t-minimum of 93.6. Pulse is 101, blood pressure 112/56, respiratory rate 16. HEENT: Pupils are sluggish. Her neck is supple. LUNGS: Clear in the upper lobes, diminished in the bases, 40% FIO2. HEART: S1 and S2 with tachycardia. ABDOMEN: No significant bowel sounds heard at this time. There is an incision currently in a dressing. EXTREMITIES: No clubbing, cyanosis or edema. She has multiple (1) lines. DIAGNOSTIC STUDIES IMAGING: Today's chest film shows consolidation in the left base. Lungs are otherwise clear. CT scan of the abdomen and pelvis on admission showed large amounts of free air in the abdomen with large amounts of fluid noted in the abdomen and pelvis, suspicious for perforation of the hollow viscus. LABORATORY: BUN 38, creatinine 2.3, which is improved from admission of 4.7, sodium 131, potassium 3.9, chloride 100, CO2 23, bilirubin 1.1, AST 142, ALT 91, alkaline phosphatase 39, CK total 3,469. Lactic acid yesterday was 3.2, which is improved from 11.4. White blood cell count 6.6, hemoglobin 8.8, hematocrit 25.8, platelets 154. Urinalysis shows white blood cell count 10-25 with negative nitrites, trace leukocytes. Urine culture and blood culture are currently negative to date. ASSESSMENT/PLAN This is a 56-year-old female with a history of irritable bowel syndrome, who was admitted to the hospital after passing out, with what sounds like a GI bleed as she had dark vomit. The patient was taken to the operating room after she was found to have a large amount of free air on the CT scan. At this time the patient is status post perforated viscus repair and we will treat as abdominal sepsis with peritonitis and suspected left lower lobe pneumonia/aspiration pneumonia. Blood cultures and urine culture are currently negative to date and the patient remains on the ventilator with a Levophed drip. At this time I agree with current antibiotic therapy and may be able to discontinue vancomycin if there is no MRSA detected. Will request a sputum gram stain and culture. Will have the nursing staff call with any positive blood cultures. Will check routine blood work in the morning. The patient is noted to also have rhabdomyolysis and some acute kidney injury due to her shock state. Renal is currently following. Thank you for allowing us to participate in the care of this patient. Further recommendations will follow pending the patient's clinical course. Unit #: [id number] #: [id number] Patient: ANAYA STOVALL Dictated by... vYette Ann A.P.R.N. SLS/gz TD: 12/04/2016 10:20 JOB #: [id number] CONSULTATION REPORT Page 1 of 1 X X CONSULTATION REPORT
--- NOTE | ~2016-12-02 | CT57 ---
[facility] A Service [facility] RADIOLOGY TEXT RESULTS PATIENT: ANAYA STOVALL LOCATION: [facility] 564-01 : [birth year] UNIT #: [id number] AGE: [address]: Hu Hampton MD SEX: F ORDER DR: [id number] [facility] [address] [facility]. [place], [place] [address] [id number] I MR#: [id number] #: [id number] NAME: ANAYA STOVALL : 1960 SEX: F STUDY DATE/TIME: 12/09/2016 13:17 UNIT: [facility] ROOM: [facility] STUDY DESCRIPTION: CT Chest Wo Cont Attending Physician: Hu Hampton M.D. Ordering Physician: Rei Ryan M.D. Primary Care Physician: Paolo Mack M.D. MEDICAL IMAGING REPORT This report is preliminary unless electronic signature is present EXAM CT chest without contrast. HISTORY Pleural effusions and sepsis. Increased infiltrates on chest x-ray today. Respiratory failure. TECHNIQUE This CT exam was performed with one or more of the following radiation dose reduction techniques: automatic exposure control, adjustment of mA and/or kV according to patient size, and iterative reconstruction. FINDINGS CT chest without contrast demonstrates moderate multifocal patchy infiltrates in the bilateral upper lobes, and nearly complete atelectasis of the left lower lobe with only partial residual aeration of the superior segment, and moderate atelectasis in the inferior right lower lobe. There are bilateral pleural effusions, small on the left and trace on the right. Postop changes in the upper abdomen from recent surgery. Bilateral breast implants. No adenopathy. IMPRESSION 1. Small left pleural effusion and trace right pleural effusion. 2. Moderate multifocal patchy infiltrates in the bilateral upper lobes. 3. Extensive, nearly complete atelectasis in the left lower lobe and moderate atelectasis in the inferior right lower lobe. 4. Postop changes in the upper abdomen. Dictated by... Hitesh Mars M.D. [facility] A Service of [facility] RADIOLOGY TEXT RESULTS PATIENT: ANAYA STOVALL LOCATION: [facility] 564-01 : [birth year] UNIT #: [id number] AGE: [address]: Hu Hampton MD SEX: F ORDER DR: THIS IS AN ELECTRONICALLY VERIFIED REPORT Hitesh Mars M.D. at 12/09/2016 10:52 PM JT/lizz TD: 12/09/2016 21:18 JOB #: [id number] MEDICAL IMAGING REPORT Page 1 of 1 COPY
--- NOTE | ~2016-12-02 | OR ---
Unit #: [id number] #: [id number] Patient: ANAYA STOVALL [id number] [facility]. [place], [place] [address] [id number] I MR#: [id number] NAME: ANAYA STOVALL ROOM: [facility] Date of Procedure: 12/03/2016 Admission Date: 12/02/2016 Surgeon: Ish Draper Jr., M.D. : 1960 Attending Physician: Gloria Pena M.D. Primary Care Physician: Paolo Mack M.D. OPERATIVE REPORT INDICATIONS FOR PROCEDURE The patient is a 56-year-old white female, who was admitted through the emergency room after passing out at home. She was noted to be in shock and had free air on CAT scan. It was felt she probably had a perforated viscus. Over the past 12 to 14 hours, she has been stabilized and is brought to the operating room at this time for emergency surgery to determine the source of her free air. PREOPERATIVE DIAGNOSIS Perforated viscus with peritonitis and renal failure and respiratory failure. POSTOPERATIVE DIAGNOSIS Perforated duodenal ulcer with massive spillage of bile and bile-stained contents within the abdomen. ANESTHESIA General with endotracheal intubation. TEACHING DIETITIAN June Foster. PROCEDURES PERFORMED Exploratory laparotomy, over sewing of perforated duodenal ulcer with Cornell patch placed, and extensive luminous intraperitoneal irrigation. DESCRIPTION OF PROCEDURE The patient was positioned in the supine position and after being anesthetized, she was prepped and draped in routine fashion for exploration through midline incision. An incision was made extending from the upper midline down to the left of the umbilicus and approximately 2 inches below the umbilicus. This was carried down through subcu tissue through the linea alba of the peritoneal cavity. Upon opening the peritoneal cavity, there was massive amount of bilious fluid evacuated. The remainder of our incision was opened with cutting edge of the Bovie cautery. Full intraabdominal exploration was carried out. There was a large amount of fluid still within the abdomen along with exudate. All this was irrigated and removed. The abdomen was explored. There was approximately a 1 cm perforated duodenal ulcer in the area of the bulb and no other specific abnormalities. Multiple 3-0 Prolene sutures were used to sew the ulcer up and Cornell patch of omentum was placed over the top and this was sutured in place with interrupted 3-0 Prolene sutures. The Unit #: [id number] #: [id number] Patient: ANAYA STOVALL abdomen was again copiously irrigated with saline solution. After all exudate was removed, the midline was closed with interrupted #1 Vicryl suture single fascial layer closure. Subcutaneous tissue was irrigated and after hemostasis achieved with Bovie cautery, the skin edges were approximated with stainless-steel skin clips and skin stapling device. Sterile dressings were applied externally. Estimated blood loss less than 50 mL. The patient received less than 2000 mL crystalloid solution during the procedure. Sponges and instrument counts were correct x3. No drains used. No complications. The patient was taken to the recovery room with stable vital signs in satisfactory condition. Dictated by... Ish Draper Jr., MJuliet DUBOIS/divina TD: 12/03/2016 16:26 JOB #: [id number] OPERATIVE REPORT Page 1 of 1 X Ish Draper MD X PROCEDURE OPERATIVE NOTE
--- NOTE | ~2016-12-02 | CO ---
Unit #: [id number] #: [id number] Patient: ANAYA STOVALL [id number] [place], [place] [address] [id number] MR#: [id number] NAME: ANAYA STOVALL ROOM: [facility] Age: 56 Sex: F Admission Date: 12/02/2016 : 1960 Attending Physician: Hu Hampton M.D. Primary Care Physician: Paolo Mack M.D. Consultation Date: 12/03/2016 CONSULTATION REPORT REASON FOR CONSULTATION Preoperative clearance and elevated troponin. HISTORY OF PRESENT ILLNESS This is a 56-year-old white female, new to our group, with a past medical history of chronic neck pain and irritable bowel syndrome. The patient reportedly had a recent neck surgery in the last couple of months. There are no reports of hypertension, hyperlipidemia, diabetes mellitus, myocardial infarction, or cerebrovascular accident. She has not followed a devulcanizer tender and there is no documentation of previous stress test or cardiac catheterizations. She presented to the emergency department with complaints of abdominal pain with nausea and vomiting. She was minimally responsive and her blood sugar was poorly low at 38. Initial labs revealed a potassium of 5.7. Phosphorus was 8.5. She was given normal saline bolus and ultimately intubated due to respiratory failure. She was given a full dose of Protonix and then started on Protonix drip. She was dosed with Zosyn and vancomycin. CT of the abdomen and pelvis revealed a perforated viscus. She was admitted for severe sepsis. Her creatinine was elevated and Nephrology was consulted. Urinalysis revealed probable urinary tract infection. Cardiac enzymes were elevated with a troponin of 0.48. EKG revealed sinus tachycardia with no acute findings. Cardiology was consulted for elevated troponin and preoperative clearance. The patient is sedated on a ventilator and is a poor historian. Family is at the bedside. According to family, she has had no cardiac symptoms reported. She is ill-appearing and tachycardic. She is on Levophed for hypotension. She is awaiting abdominal surgery. PAST MEDICAL HISTORY 1. Chronic neck pain. 2. Irritable bowel syndrome. 3. Active tobacco abuse. PAST SURGICAL HISTORY Reported next surgery. HOME MEDICATIONS List of home medications are unavailable that include zolpidem, hydrocodone, gabapentin, and Flexeril. ALLERGIES No known drug allergies next. Unit #: [id number] #: [id number] Patient: ANAYA STOVALL SOCIAL HISTORY The patient lives in a private residence. She is an active smoker and smokes a few cigarettes per day. There were some reports of alcohol use, but not heavy. There are no reports of illicit drug use. FAMILY HISTORY Noncontributory. REVIEW OF SYSTEMS Difficult to obtain. PHYSICAL EXAMINATION GENERAL: This is a 56-year-old ill-appearing white female who is sedated on pressors. SKIN: Cool and dry. NECK: Supple. No jugular vein distention. No hepatojugular reflex. Normal carotid upstrokes. No carotid bruits auscultated. HEART: S1 and S2. Regular rate and rhythm, but tachycardic. No murmurs, rubs, or gallops. LUNGS: Bilateral breath sounds are diminished in the bases. Respirations are even and nonlabored. No rales, rhonchi, or wheezes. ABDOMEN: Distended with decreased bowel sounds. No ascites. EXTREMITIES: Bilateral lower extremities have no pretibial or pitting edema. DP and PT pulses are 2+. Capillary refill is less than 2 seconds. DIAGNOSTIC STUDIES LABORATORY RESULTS: White blood cell count 6.2, hemoglobin 12.6, hematocrit 37.4, and platelets 282. Sodium 134, potassium 4.6, chloride 96, CO2 of 21, BUN 77, creatinine 3.8, glucose 94, and calcium 6.0. AST 225, ALT 155, alkaline phosphatase 49, total bilirubin 0.8, total protein 3.6, and albumin 1.8. Phosphorus 6.7. CK 3397. Lipase 69. Magnesium 1.6. Troponin 0.48. Total cholesterol 88, triglycerides 273, LDL 28, and HDL less than 5. IMAGING STUDIES: CT of the abdomen and pelvis concerning for perforated bowel. Please see full report. CARDIOVASCULAR STUDIES: Electrocardiogram reveals sinus tachycardia with a ventricular rate of 108 beats per minute. Nonspecific ST-T wave changes. QTc 511 milliseconds. IMPRESSION 1. Septic shock with hypovolemia. 2. Perforated bowel. 3. Rhabdomyolysis. 4. Acute respiratory failure, on ventilator. 5. Acute kidney injury. 6. Liver shock. 7. Sinus tachycardia. 8. Hypotension. 9. Lactic acidosis. 10. Nondiagnostic troponin, probably related to hypotension. PLAN 1. The patient presented to the hospital with unresponsiveness and low glucose level after nausea, vomiting, and coffee-ground emesis. 2. She was admitted for perforated bowel and sepsis. 3. [facility] are following and she is scheduled to Unit #: [id number] #: [id number] Patient: ANAYA STOVALL undergo surgery. 4. Cardiology was consulted due to elevated troponin. The patient's troponin is likely elevated due to hypotension and is an issue of supply and demand. 5. Needs to proceed with emergent surgery. She should be a low risk candidate from a cardiac standpoint. Continue IV fluids and Levophed for blood pressure control. PROGNOSIS Guarded. Dictated by... Chrissy Noland APRN for Belinda Le TD: 12/05/2016 13:15 JOB #: [id number] CONSULTATION REPORT Page 1 of 1 X X CONSULTATION REPORT
--- NOTE | ~2016-12-02 | HP ---
Unit #: [id number] #: [id number] Patient: ANAYA STOVALL [id number] [facility]. [place], [place] [address] [id number] MR#: [id number] NAME: ANAYA STOVALL ROOM: [facility] Age: 56 Sex: F Admission Date: 12/02/2016 : 1960 Attending Physician: Gloria Pena M.D. Primary Care Physician: Paolo Mack M.D. HISTORY AND PHYSICAL CHIEF COMPLAINT Unresponsive, blood sugar 38, GI bleed. HISTORY OF PRESENT ILLNESS The patient is a 56-year-old female with a past medical history of irritable bowel syndrome, chronic pain who presented to the emergency department for evaluation of the above. The history is obtained from chart review and discussion with ER staff as well as from the patient's who is at bedside. The patient has had abdominal pain since November 30, 2016. She has had decreased appetite. Today, she was awake and alert. She thought she needed to use the bathroom. Her helped her to the bathroom and she "passed out." She was brought to the emergency department for further evaluation. In the emergency department, initial temperature was 94.2, pulse 82, respirations 36, blood pressure 114/84. CT of the chest showed a large amount of free air within the abdomen. Laboratory notable for lactic acid of 11.4, BUN and creatinine 78 and 4.7 respectively, CO2 was 12. Anion gap 29. Initial arterial blood gas showed pH of 6.89, pCO2 of 56, pO2 of 301 with an FIO2 of 100%. She was intubated in the emergency department. She was given 2 L of normal saline as well as 5 amps of bicarb, 80 mg of Protonix. She is now on Protonix drip at 8 mg/hour. She also received Zosyn and vancomycin and Zosyn. She is being admitted to [facility] for evaluation and further treatment. PAST MEDICAL HISTORY 1. Admission to [facility] about six weeks ago for neck surgery by Dr. Bustillos (no records). 2. Irritable bowel syndrome. 3. Chronic pain. PAST SURGICAL HISTORY 1. Neck surgery. 2. Hysterectomy. 3. . 4. Colonoscopy more than five years ago. SOCIAL HISTORY The patient lives with her . She smokes a pack a week. She is a daily drinker, two to three mixed drinks daily. FAMILY HISTORY Notable for her dad having some type of malignancy. Unit #: [id number] #: [id number] Patient: ANAYA STOVALL ALLERGIES No known allergies. HOME MEDICATIONS 1. Zolpidem. 2. Hydrocodone. 3. Gabapentin. 4. Flexeril. Home medications will need to be reviewed and verified. REVIEW OF SYSTEMS A complete review of systems is unobtainable from the patient due to her currently being intubated and sedated. DIAGNOSTIC STUDIES CARDIOVASCULAR: EKG shows normal sinus rhythm with rate of 100 beats/minute. IMAGING: Chest x-ray shows atelectasis versus infiltrate involving the left base. CT of the head shows nothing acute. CT of the chest shows a large amount of free air within the abdomen. CT of the abdomen and pelvis is pending at the time of this dictation. LABORATORY: Complete blood count notable for hemoglobin of 14.6, troponin is less than 0.05. Arterial blood gas shows pH of 6.89, pCO2 of 56, pO2 of 301 on assist control with an FIO2 of 100%. INR is 1.7, lactic acid is 11.4. Comprehensive metabolic panel notable for sodium of 129, potassium of 5.7, chloride 88, CO2 is 12, anion gap of 29, glucose 82. BUN and creatinine 78 and 4.7 respectively. AST and ALT are 93 and 70 respectively. Albumin is 3.3, CK is 325, lipase 134. Alcohol level is less than 5. Urinalysis notable for trace leukocyte esterase, 3+ protein, 3+ blood with 5-10 red blood cells, 10-25 white blood cells. Urine tox screen is positive for opiates. Tylenol level less than 10, salicylate level is 9. PHYSICAL EXAMINATION VITAL SIGNS: Temperature is 94.2, pulse 82, respirations 36, blood pressure 114/82. GENERAL: The patient is a female who is currently intubated and sedated. HEENT: The head is atraumatic. Mucous membranes are dry. NECK: Supple. Trachea is midline. Unit #: [id number] #: [id number] Patient: ANAYA STOVALL CARDIOVASCULAR: Regular rate and rhythm. LUNGS: Clear to auscultation bilaterally with no increased work of breathing. ABDOMEN: Demonstrates decreased bowel sounds. NEURO: The patient is currently sedated. She was apparently minimally responsive upon arrival in the emergency department. EXTREMITIES: Mottled. There is no pedal edema. SKIN: Skin of examined areas if pale, again with mottling of the extremities. ASSESSMENT The patient is a 56-year-old female with: 1. Severe sepsis. 2. Perforated viscous. 3. Acute kidney injury: The patient's creatinine is 4.7 with no baseline for comparison. 4. Hyperkalemia with a potassium of 5.7. 5. Acute respiratory failure: Dr. Ryan has already seen the patient. 6. Urinary tract infection with history of irritable bowel syndrome. 7. Hypoglycemia: The patient's initial glucose was reportedly 38; however, here in the emergency department it was 82. There is no history of diabetes. 8. Chronic pain. 9. Gastrointestinal bleed. 10. Tobacco abuse. 11. Heavy alcohol. PLAN 1. Admit to ICU. 2. NPO. 3. Sepsis protocol with repeat lactic acid. 4. Consult [facility] regarding perforated viscous and GI bleed. Dr. Sanchez, the emergency room physician, has spoken with Dr. Draper who said that the patient was not an operative candidate currently but agreed to see her in consultation. 5. Consult Dr. Mata regarding acute kidney injury. I am waiting for a return phone call from him. 6. Check magnesium and phosphorous levels. 7. Strict I's and O's. 8. Urine culture and sensitivity on urine in the lab. 9. Consult Dr. Ryan regarding acute respiratory failure. 10. Vancomycin and Zosyn IV pending further workup. 11. Protonix drip at 8 mg/hour. 12. Hemoglobin and hematocrit q.6 hours. 13. Repeat BMP now. 14. Serial cardiac enzymes. 15. Frequent Accu-Cheks. 16. SCDs for DVT prophylaxis. 17. Rachael Hugger per protocol. 18. Repeat labs in the morning including magnesium, phosphorus, INR, lipase, CPK. Thirty-eight minutes critical time spent in the care of this patient (6:50 to 7:28 p.m.). I spoke with the patient's as well as another family member. All of their questions were answered. The patient's prognosis is extremely poor. Unit #: [id number] #: [id number] Patient: ANAYA STOVALL Dictated by Belinda Oneil/paul TD: 12/03/2016 08:27 JOB #: [id number] HISTORY AND PHYSICAL Page 1 of 1 X Gloria Pena MD HISTORY AND PHYSICAL
--- NOTE | ~2016-12-02 | CR72 ---
[facility] A Service of [facility] & [facility] RADIOLOGY TEXT RESULTS PATIENT: ANAYA STOVALL LOCATION: [address] : [birth year] UNIT #: [id number] AGE: [address]: Hu Hampton MD SEX: F ORDER DR: [id number] [facility] [address] [place], [place] [address] [id number] I MR#: [id number] Acc #: [id number] NAME: ANAYA STOVALL : 1960 SEX: F STUDY DATE/TIME: 12/02/2016 16:18 UNIT: [facility] ROOM: [facility] STUDY DESCRIPTION: CR Chest Single View Portable Attending Physician: Gloria Pena M.D. Ordering Physician: Mulu Sanchez M.D. Primary Care Physician: Paolo Mack M.D. MEDICAL IMAGING REPORT This report is preliminary unless electronic signature is present EXAM Single view of the chest, dated 12/02/16, at 1618 hours. COMPARISON None. HISTORY Patient is unresponsive and on a vent. Dobbhoff tube has been placed. Symptoms are worse today. Patient also appears to be short of breath. FINDINGS Frontal view of the chest was obtained. Patient is known to have an endotracheal tube in place with the tip about 2 cm in the presumed rianna. Right subclavian approach PICC line catheter tip is in the region of the SVC, adequate. There is an NG tube which extends past the midbody of the stomach, but the tip is not included on the current study. It is probably adequate. Mild atelectasis/infiltrate is noted in the left lung base. No obvious pleural effusion or pneumothorax is seen. Evidence of postoperative changes in the [id number] cervical spine with hardware. Dictated by... Jose Mishra M.D. THIS IS AN ELECTRONICALLY VERIFIED REPORT Jose Mishra M.D. at 12/04/2016 5:09 PM CPR/jt TD: 12/02/2016 23:28 JOB #: [id number] MEDICAL IMAGING REPORT Page 1 of 1 COPY
--- NOTE | ~2016-12-02 | FU ---
[facility] Nutrition Therapy DATE: 12/07/16 Patient: ANAYA STOVALL Physician: ALISSA Address: [address] Room/Bed: [address], Zip: [place] [address] Admit Date: 12/02/16 Date of : [birth year] Height: 5 6 Weight: 151 68.8 NUTRITION MONITORING/FOLLOW-UP: Reason: follow up, TPN 56 y/o female admitted for unresponsiveness and perforated duodenal ulcer s/p exploratory laparotomy and repair Anthropometrics: ht: 5'6" wt: 63.5 kg BMI: 22.6 Labs: K+ 3.3, Ca++ 7.4, Alb 1.9, ASR 78, ALT 68, Mg++ 1.5, Lip 69 Meds: TPN (not in room yet), MgSO4, zofran, KCl, NaCl, protonix (IV), morphine sulfate I&O's: 1885/2660. Last BM unknown Skin: midline surgical incision to abdomen Edema: none noted Estimated Nutrition Needs: 2270-7735 kcals (25-30 kcal/kg) 95-114 g pro (1.5-1.8 g/kg) Assessment: Chart reviewed, events noted. Per RN and chart, pt was extubated 2 days ago. Pt is alert and follows commands. Pt has an NG tube to LWS with 300cc last night and 100cc output this AM. ICT SUPPORT ENGINEER unable to see pt at this time, as she is not appropriate for PO intake per surgery. TPN has been ordered per renal with 25% Dextrose and 5% Amino Acids at a rate of 80 ml/hr x 24 hours. Please see recommendations. RD will follow. Dx: Inadequate protein-energy intake r/t clinical condition, bowel surgery AEB NPO status -In progress Intervention: 1. TPN Monitoring, Evaluation and Goals: 1. Enteral nutrition; initiate, provide >80% goal volume x 24 hrs -Not active 2. Improve labs; BUN, creat, Na+, AST, ALT, trig, lipase, GFR -Improved/ In progress 3. GI; promote regular GI function -NOT MET 4. Skin; promote healing -In progress 5. Weight; prevent unintentional weight loss -In progress New goals: 1. TPN; tolerate/receive >80% estimated needs [facility] Nutrition Therapy DATE: 12/07/16 Patient: ANAYA STOVALL Physician: ALISSA Address: [address] Room/Bed: [address], Zip: [place] [address] Admit Date: 12/02/16 Date of : [birth year] Height: 5 6 Weight: 151 68.8 Recommendations: 1. Replete K+ to WNL PRN. 2. Once medically feasible, recommend initiating TPN (25 % Dextrose) and gradually increasing to goal of 75 mL/hr. This will provide 1530 non-protein kcals, 90 g protein, 1890 total kcal (GUR 4.9) 3. Obtain updated Triglyceride level, as the pt had elevated triglycerides on 12/04. Will f/u to make appropriate recommendations for lipid cycling. 4. Monitor electrolytes and glucose levels closely. 5. Once medically feasible, recommend ICT SUPPORT ENGINEER evaluation to determine if the pt can safely tolerate PO intake. Advance diet per ICT SUPPORT ENGINEER recommendations starting with clear liquids if feasible. RD will f/u per protocol as pt is at moderate/severe nutritional risk. Respectfully, ANTONIA CHOUDHARY RD, LD Latanya Faye RD, LD [facility] cc: client file
--- NOTE | ~2016-12-02 | CT57 ---
[facility] A Service of [facility] RADIOLOGY TEXT RESULTS PATIENT: ANAYA STOVALL LOCATION: [facility] [address] : [birth year] UNIT #: [id number] AGE: [address]: Hu Hampton MD SEX: F ORDER DR: [id number] [facility] [address] [place], [place] [address] [id number] I MR#: [id number] Acc #: [id number] NAME: ANAYA STOVALL : 1960 SEX: F STUDY DATE/TIME: 12/02/2016 18:02 UNIT: [facility] ROOM: [facility] STUDY DESCRIPTION: CT Chest Wo Cont Attending Physician: Gloria Pena M.D. Ordering Physician: Mulu Sanchez M.D. Primary Care Physician: Paolo Mack M.D. MEDICAL IMAGING REPORT This report is preliminary unless electronic signature is present EXAM CT chest without contrast 12/02/2016 COMPARISON None PROCEDURE Axial unenhanced chest CT with multiplanar reformats. This CT exam was performed with one or more of the following radiation dose reduction techniques: automatic control, adjustment of mA and/or kV according to patient size, and iterative reconstruction. HISTORY Pale and diaphoretic. Ventilator dependent, symptoms onset today. FINDINGS There is bilateral dependent pulmonary parenchymal opacity likely due to atelectasis. There is no pneumothorax. ET tube extends essentially to the rianna and there may be relative preferential ventilation of the left versus right mainstem bronchus. Images of the upper abdomen show free intraperitoneal air. No pneumothorax. IMPRESSION There is bibasilar posterior dependent pulmonary opacity which is probably simply atelectasis. There is no pneumothorax and no nondependent lung consolidation is seen but images of the upper abdomen show a large amount of free intraperitoneal air suggesting a perforated hollow viscus. [facility] A Service of [facility] RADIOLOGY TEXT RESULTS PATIENT: ANAYA STOVALL LOCATION: [facility] [address] : [birth year] UNIT #: [id number] AGE: [address]: Hu Hampton MD SEX: F ORDER DR: Dictated by... Lb De La Paz M.D. THIS IS AN ELECTRONICALLY VERIFIED REPORT Lb De La Paz M.D. at 12/12/2016 4:00 PM ZAY/cecille TD: 12/03/2016 01:02 JOB #: [id number] MEDICAL IMAGING REPORT Page 1 of 1 COPY
--- NOTE | ~2016-12-02 | CR72 ---
[facility] A Service of [facility] & [facility] RADIOLOGY TEXT RESULTS PATIENT: ANAYA STOVALL LOCATION: [address] : [birth year] UNIT #: [id number] AGE: [address]: Hu Hampton MD SEX: F ORDER DR: [id number] [facility] [address] [place], [place] [address] [id number] MR#: [id number] Acc #: [id number] NAME: ANAYA STOVALL : 1960 SEX: F STUDY DATE/TIME: 12/04/2016 6:33 UNIT: [facility] ROOM: [facility] STUDY DESCRIPTION: CR Chest Single View Portable Attending Physician: Hu Hampton M.D. Ordering Physician: Rei Ryan M.D. Primary Care Physician: Paolo Mack M.D. MEDICAL IMAGING REPORT This report is preliminary unless electronic signature is present EXAM Portable chest History: Respiratory failure; assess tube position FINDINGS Endotracheal tube remains in a low position about 1.2 cm above the rianna. Right neck approach Shiley catheter and right subclavian catheter remain in satisfactory position unchanged. Continued low lung volumes. Small amount of left basilar atelectasis. No visible pneumothorax. Dictated by... Emelyn Herring M.D. THIS IS AN ELECTRONICALLY VERIFIED REPORT Emelyn Herring M.D. at 12/05/2016 7:19 AM Lori TD: 12/04/2016 10:25 JOB #: [id number] MEDICAL IMAGING REPORT Page 1 of 1 COPY
[2016-12-02 16:08] LABS: BASOPHIL% 0.1 % (0-2.5); EOSINOPHIL% 0.2 % (0.0-7.0); HEMATOCRIT 45.6 % (35.0-45.0); HEMOGLOBIN 14.6 gm/dL (12.0-16.0); LYMPHOCYTE# 1.2 X10e3 (1.0-3.5); LYMPHOCYTE% 11.5 % (17.0-45.0); MEAN CELL VOLUME 98.8 FL (83-96); MEAN CORPUSCULAR HEMOGLOBIN 31.8 PG (28-34); MEAN CORPUSCULAR HGB CONC 32.1 g/dL (30-36); MEAN PLATELET VOLUME 8.6 FL (6.5-11.5); MONOCYTE# 0.3 X10e3 (0-1.0); MONOCYTE% 2.6 % (3.0-12.0); NEUTROPHIL# 8.7 X10e3 (1.5-7.1); NEUTROPHIL% 85.6 % (40-75); PLATELET COUNT 386 X10e3 (140-420); RED BLOOD COUNT 4.61 X10e (3.90-5.30); RED CELL DISTRIBUTION WIDTH 14.3 % (11.0-15.5); WHITE BLOOD COUNT 10.1 X10e3 (4.0-10.5)
[2016-12-02 16:09] LABS: DIFF IND NO
[2016-12-02 16:13] LABS: POC - CKMB 33.8 ng/mL (0.0-7.9); POC - TROPONIN <0.05 ng/mL (<=0.05)
[2016-12-02 16:16] LABS: ARTERIAL BLD GAS O2 SATURATION 98.8 % (90.0-100.0); ARTERIAL BLOOD GAS HCO3 10.7 mmol/L
[2016-12-02 16:17] LABS: ARTERIAL BLOOD GAS ART SITE RIGHT BRACHIAL; ARTERIAL BLOOD GAS CARBOXY HB 0.1 %sat (0.0-9.0); ARTERIAL BLOOD GAS DELIVERY VENT; ARTERIAL BLOOD GAS MET HB 1.3 %sat (0.0-2.0); ARTERIAL BLOOD GAS VENT MODE A/C; ARTERIAL DRAW? YES
[2016-12-02 16:21] LABS: INR 1.7; PARTIAL THROMBOPLASTIN TIME 50.8 SECONDS (23.5-31.3); PROTHROMBIN TIME (PATIENT) 18.1 SECONDS (9.6-11.5)
[2016-12-02 17:03] LABS: ALBUMIN SERUM 3.3 g/dL (3.5-5.0); ALKALINE PHOSPHATASE 80 U/L (32-92); ALT (SGPT) 70 U/L (10-40); AST (SGOT) 93 U/L (10-42); BILIRUBIN, DIRECT 0.6 mg/dL (0.0-0.2); BILIRUBIN,INDIRECT 0.2 mg/dL (0.0-0.9); BILIRUBIN,TOTAL 0.8 mg/dL (0.2-2.0); BLOOD UREA NITROGEN 78 mg/dL (9-23); BUN/CREATININE RATIO 16.59; CALCIUM SERUM 8.5 mg/dL (8.4-10.2); CARBON DIOXIDE 12 mmol/L (22-31); CHLORIDE 88 mmol/L (100-111); CPK (CREATINE PHOSPHOKINASE) 325 IU/L (26-140); CREATININE SERUM 4.7 mg/dL (0.6-1.4); GLOM FILT RATE Estimated 9.8 mL/min (>60); GLUCOSE FASTING 82 mg/dL (70-110); LIPASE 134 U/L (22-51); PROTEIN TOTAL SERUM 6.5 g/dL (6.0-8.3); SODIUM 129 mmol/L (135-145)
[2016-12-02 17:04] LABS: ALCOHOL BLOOD <5 mg/dL (0); POTASSIUM 5.7 mmol/L (3.5-5.1)
[2016-12-02 17:18] LABS: ARTERIAL BLOOD GAS CARBOXY HB 0.2 %sat (0.0-9.0); ARTERIAL BLOOD GAS HCO3 24.8 mmol/L; ARTERIAL BLOOD GAS PCO2 43.5 mmHg (35.0-45.0); ARTERIAL BLOOD GAS pH 7.364 (7.350-7.450)
[2016-12-02 17:19] LABS: ARTERIAL BLOOD GAS ART SITE LEFT BRACHIAL; ARTERIAL BLOOD GAS DELIVERY VENT; ARTERIAL BLOOD GAS VENT MODE A/C; ARTERIAL DRAW? YES
[2016-12-02 17:50] LABS: URINE SOURCE CATH
[2016-12-02 18:04] LABS: URINE APPEARANCE TURBID; URINE BLOOD 3+ (NEG); URINE COLOR DK YELLOW; URINE GLUCOSE NEG (NEG); URINE KETONE TRACE (NEG); URINE LEUKOCYTE ESTERASE TRACE (NEG); URINE NITRATE NEG (NEG); URINE PROTEIN 3+ (NEG)
[2016-12-02 18:07] LABS: CULTURE INDICATED? YES; URINE BACTERIA AUWI NEG (NEGATIVE); URINE SQUAMOUS EPITHELIAL CELL FEW /[HPF]
[2016-12-02 18:13] LABS: URINE BILIRUBIN NEG (NEG)
[2016-12-02 18:14] LABS: U HYALINE CASTS AUWI 0-2 /[LPF]
[2016-12-02 18:22] LABS: AMPHETAMINE NEG (NEG); BARBITURATES NEG (NEG); BENZODIAZEPINES NEG (NEG); COCAINE NEG (NEG); MARIJUANA NEG (NEG); OPIATES POS (NEG); TRICYCLIC ANTIDEPRESSANTS NEG (NEG); U METHADONE NEG (NEG)
[2016-12-02 18:28] LABS: ACETAMINOPHEN <10 ug/mL
[2016-12-02 19:45] LABS: POC - CKMB 41.5 ng/mL (0.0-7.9); POC - TROPONIN 0.05 ng/mL (<=0.05)
[2016-12-02 21:49] LABS: %MB 2.9 % (0.0-4.0); BUN/CREATININE RATIO 20.85; CREATININE SERUM 3.5 mg/dL (0.6-1.4); GLOM FILT RATE Estimated 13.9 mL/min (>60); MAGNESIUM 1.7 mg/dL (1.6-3.0); MB 44.2 ng/ml
[2016-12-02 21:52] LABS: CALCIUM SERUM 6.2 mg/dL (8.4-10.2); PHOSPHOROUS 8.5 mg/dL (2.5-4.6); POTASSIUM 4.1 mmol/L (3.5-5.1)
[2016-12-03 00:51] LABS: HEMATOCRIT 38.7 % (35.0-45.0); HEMOGLOBIN 13.1 gm/dL (12.0-16.0)
[2016-12-03 04:43] LABS: ARTERIAL BLOOD GAS PCO2 30.3 mmHg (35.0-45.0); ARTERIAL BLOOD GAS pH 7.477 (7.350-7.450)
[2016-12-03 04:44] LABS: ARTERIAL BLD GAS O2 SATURATION 96.2 % (90.0-100.0); ARTERIAL BLOOD GAS ART SITE RIGHT FEMORAL; ARTERIAL BLOOD GAS CARBOXY HB 0.3 %sat (0.0-9.0); ARTERIAL BLOOD GAS DELIVERY VENT; ARTERIAL BLOOD GAS HCO3 22.4 mmol/L; ARTERIAL BLOOD GAS MET HB 0.3 %sat (0.0-2.0); ARTERIAL BLOOD GAS PO2 82.3 mmHg (80.0-100); ARTERIAL BLOOD GAS VENT MODE AC; ARTERIAL DRAW? YES
[2016-12-03 06:17] LABS: EOSINOPHIL% 0.2 % (0.0-7.0); HEMATOCRIT 37.4 % (35.0-45.0); HEMOGLOBIN 12.6 gm/dL (12.0-16.0); LYMPHOCYTE# 0.6 X10e3 (1.0-3.5); LYMPHOCYTE% 8.9 % (17.0-45.0); MEAN CORPUSCULAR HEMOGLOBIN 31.6 PG (28-34); MEAN CORPUSCULAR HGB CONC 33.5 g/dL (30-36); MEAN PLATELET VOLUME 8.8 FL (6.5-11.5); MONOCYTE# 0.2 X10e3 (0-1.0); MONOCYTE% 2.9 % (3.0-12.0); NEUTROPHIL# 5.4 X10e3 (1.5-7.1); PLATELET COUNT 282 X10e3 (140-420); RED BLOOD COUNT 3.97 X10e (3.90-5.30); RED CELL DISTRIBUTION WIDTH 13.9 % (11.0-15.5); WHITE BLOOD COUNT 6.2 X10e3 (4.0-10.5)
[2016-12-03 06:42] LABS: INR 1.4
[2016-12-03 06:44] LABS: ALBUMIN SERUM 1.8 g/dL (3.5-5.0); BILIRUBIN,TOTAL 0.8 mg/dL (0.2-2.0); BUN/CREATININE RATIO 20.26; CREATININE SERUM 3.8 mg/dL (0.6-1.4); GLOM FILT RATE Estimated 12.6 mL/min (>60); MAGNESIUM 1.6 mg/dL (1.6-3.0); PHOSPHOROUS 6.7 mg/dL (2.5-4.6); POTASSIUM 4.6 mmol/L (3.5-5.1); PROTEIN TOTAL SERUM 3.6 g/dL (6.0-8.3)
[2016-12-03 06:48] LABS: %MB 1.4 % (0.0-4.0); MB 44.8 ng/ml
[2016-12-03 06:57] LABS: DIFF IND YES; MEAN CELL VOLUME 94.2 FL (83-96)
[2016-12-03 07:08] LABS: PLATELET ESTIMATE NORMAL (NORMAL)
[2016-12-03 12:20] LABS: CHOLESTEROL 88 mg/dL (0-200); TRIGLYCERIDES 273 mg/dL (10-160)
[2016-12-03 12:25] LABS: HDL CHOLESTEROL <5 mg/dL (35-95); LDL CHOLESTEROL 28 mg/dL (-130); LDL/HDL RATIO 5 RATIO (0-4)
[2016-12-03 16:39] LABS: BUN/CREATININE RATIO 18.46; CREATININE SERUM 3.9 mg/dL (0.6-1.4); GLOM FILT RATE Estimated 12.2 mL/min (>60); POTASSIUM 4.5 mmol/L (3.5-5.1)
[2016-12-03 16:41] LABS: CALCIUM SERUM 5.3 mg/dL (8.4-10.2)
[2016-12-03 22:31] LABS: HEMATOCRIT 26.9 % (35.0-45.0)
[2016-12-03 22:33] LABS: HEMOGLOBIN 9.2 gm/dL (12.0-16.0)
[2016-12-04 02:17] LABS: HEMATOCRIT 25.8 % (35.0-45.0); HEMOGLOBIN 8.8 gm/dL (12.0-16.0); MEAN CELL VOLUME 93.1 FL (83-96); MEAN CORPUSCULAR HEMOGLOBIN 31.8 PG (28-34); MEAN CORPUSCULAR HGB CONC 34.2 g/dL (30-36); MEAN PLATELET VOLUME 8.1 FL (6.5-11.5); RED BLOOD COUNT 2.77 X10e (3.90-5.30); RED CELL DISTRIBUTION WIDTH 13.8 % (11.0-15.5); WHITE BLOOD COUNT 6.6 X10e3 (4.0-10.5)
[2016-12-04 02:46] LABS: ALBUMIN SERUM 1.7 g/dL (3.5-5.0); BILIRUBIN,TOTAL 1.1 mg/dL (0.2-2.0); BUN/CREATININE RATIO 16.52; CREATININE SERUM 2.3 mg/dL (0.6-1.4); GLOM FILT RATE Estimated 23.2 mL/min (>60); MAGNESIUM 1.6 mg/dL (1.6-3.0); PHOSPHOROUS 4.6 mg/dL (2.5-4.6); POTASSIUM 3.9 mmol/L (3.5-5.1); PROTEIN TOTAL SERUM 3.8 g/dL (6.0-8.3)
[2016-12-04 02:47] LABS: CALCIUM SERUM 5.9 mg/dL (8.4-10.2)
[2016-12-04 03:05] LABS: %MB 0.5 % (0.0-4.0); MB 15.2 ng/ml
[2016-12-04 04:41] LABS: ARTERIAL BLOOD GAS HCO3 24.4 mmol/L; ARTERIAL BLOOD GAS PCO2 27.8 mmHg (35.0-45.0); ARTERIAL BLOOD GAS PO2 92.2 mmHg (80.0-100); ARTERIAL BLOOD GAS pH 7.551 (7.350-7.450)
[2016-12-04 04:42] LABS: ARTERIAL BLOOD GAS ALLEN TEST NORMAL; ARTERIAL BLOOD GAS ART SITE RIGHT RADIAL; ARTERIAL BLOOD GAS CARBOXY HB 0.5 %sat (0.0-9.0); ARTERIAL BLOOD GAS DELIVERY VENT; ARTERIAL BLOOD GAS MET HB 1.3 %sat (0.0-2.0); ARTERIAL BLOOD GAS VENT MODE AC; ARTERIAL DRAW? YES
[2016-12-04 13:52] LABS: HEMATOCRIT 21.6 % (35.0-45.0); HEMOGLOBIN 7.2 gm/dL (12.0-16.0)
[2016-12-04 16:17] LABS: BUN/CREATININE RATIO 15.18; CALCIUM SERUM 6.5 mg/dL (8.4-10.2); CREATININE SERUM 2.7 mg/dL (0.6-1.4); GLOM FILT RATE Estimated 19.1 mL/min (>60); POTASSIUM 3.4 mmol/L (3.5-5.1)
[2016-12-05 04:07] LABS: HEMATOCRIT 27.9 % (35.0-45.0); MEAN CORPUSCULAR HEMOGLOBIN 30.1 PG (28-34); MEAN CORPUSCULAR HGB CONC 34.2 g/dL (30-36); MEAN PLATELET VOLUME 7.9 FL (6.5-11.5); RED BLOOD COUNT 3.17 X10e (3.90-5.30); RED CELL DISTRIBUTION WIDTH 17.2 % (11.0-15.5)
[2016-12-05 04:21] LABS: HEMOGLOBIN 9.5 gm/dL (12.0-16.0)
[2016-12-05 04:52] LABS: ARTERIAL BLD GAS O2 SATURATION 99.7 % (90.0-100.0); ARTERIAL BLOOD GAS ALLEN TEST NORMAL; ARTERIAL BLOOD GAS ART SITE LEFT RADIAL; ARTERIAL BLOOD GAS CARBOXY HB 1.1 %sat (0.0-9.0); ARTERIAL BLOOD GAS DELIVERY VENT; ARTERIAL BLOOD GAS HCO3 20.4 mmol/L; ARTERIAL BLOOD GAS MET HB 0.8 %sat (0.0-2.0); ARTERIAL BLOOD GAS PCO2 29.1 mmHg (35.0-45.0); ARTERIAL BLOOD GAS VENT MODE AC; ARTERIAL BLOOD GAS pH 7.454 (7.350-7.450); ARTERIAL DRAW? YES
[2016-12-05 04:56] LABS: ALBUMIN SERUM 1.3 g/dL (3.5-5.0); BILIRUBIN,TOTAL 1.7 mg/dL (0.2-2.0); BUN/CREATININE RATIO 16.25; CALCIUM SERUM 6.7 mg/dL (8.4-10.2); CREATININE SERUM 2.4 mg/dL (0.6-1.4); MAGNESIUM 2.1 mg/dL (1.6-3.0); PHOSPHOROUS 4.4 mg/dL (2.5-4.6); POTASSIUM 3.7 mmol/L (3.5-5.1); PROTEIN TOTAL SERUM 3.2 g/dL (6.0-8.3)
[2016-12-06 02:02] LABS: ARTERIAL BLD GAS O2 SATURATION 94.3 % (90.0-100.0); ARTERIAL BLOOD GAS ART SITE LEFT BRACHIAL; ARTERIAL BLOOD GAS CARBOXY HB 1.2 %sat (0.0-9.0); ARTERIAL BLOOD GAS HCO3 24.8 mmol/L; ARTERIAL BLOOD GAS MET HB 0.9 %sat (0.0-2.0); ARTERIAL BLOOD GAS PCO2 54.3 mmHg (35.0-45.0); ARTERIAL BLOOD GAS PO2 71.7 mmHg (80.0-100); ARTERIAL BLOOD GAS pH 7.267 (7.350-7.450); ARTERIAL DRAW? YES
[2016-12-06 04:09] LABS: ARTERIAL BLD GAS O2 SATURATION 98.1 % (90.0-100.0); ARTERIAL BLOOD GAS CARBOXY HB 0.9 %sat (0.0-9.0); ARTERIAL BLOOD GAS HCO3 24.3 mmol/L; ARTERIAL BLOOD GAS PCO2 48.5 mmHg (35.0-45.0); ARTERIAL BLOOD GAS pH 7.308 (7.350-7.450); ARTERIAL DRAW? YES
[2016-12-06 04:10] LABS: ARTERIAL BLOOD GAS ART SITE LEFT BRACHIAL
[2016-12-06 04:36] LABS: HEMATOCRIT 29.2 % (35.0-45.0); HEMOGLOBIN 9.8 gm/dL (12.0-16.0); MEAN CORPUSCULAR HGB CONC 33.4 g/dL (30-36); RED BLOOD COUNT 3.25 X10e (3.90-5.30); RED CELL DISTRIBUTION WIDTH 17.7 % (11.0-15.5)
[2016-12-06 05:06] LABS: ALBUMIN SERUM 1.6 g/dL (3.5-5.0); BILIRUBIN,TOTAL 0.7 mg/dL (0.2-2.0); BUN/CREATININE RATIO 16.66; CALCIUM SERUM 6.9 mg/dL (8.4-10.2); CREATININE SERUM 1.5 mg/dL (0.6-1.4); GLOM FILT RATE Estimated 38.8 mL/min (>60); MAGNESIUM 1.8 mg/dL (1.6-3.0); PHOSPHOROUS 3.9 mg/dL (2.5-4.6); POTASSIUM 3.4 mmol/L (3.5-5.1); PROTEIN TOTAL SERUM 3.7 g/dL (6.0-8.3)
[2016-12-07 04:32] LABS: BASOPHIL% 0.1 % (0-2.5); DIFF IND NO; EOSINOPHIL# 0.2 X10e3 (0-0.7); EOSINOPHIL% 1.7 % (0.0-7.0); HEMATOCRIT 29.6 % (35.0-45.0); HEMOGLOBIN 9.9 gm/dL (12.0-16.0); LYMPHOCYTE# 0.4 X10e3 (1.0-3.5); MEAN CELL VOLUME 89.9 FL (83-96); MEAN CORPUSCULAR HEMOGLOBIN 30.1 PG (28-34); MEAN CORPUSCULAR HGB CONC 33.5 g/dL (30-36); MEAN PLATELET VOLUME 7.8 FL (6.5-11.5); MONOCYTE# 0.3 X10e3 (0-1.0); MONOCYTE% 3.7 % (3.0-12.0); NEUTROPHIL# 7.9 X10e3 (1.5-7.1); NEUTROPHIL% 89.5 % (40-75); PLATELET COUNT 100 X10e3 (140-420); RED BLOOD COUNT 3.29 X10e (3.90-5.30); RED CELL DISTRIBUTION WIDTH 17.2 % (11.0-15.5); WHITE BLOOD COUNT 8.8 X10e3 (4.0-10.5)
[2016-12-07 05:51] LABS: ALBUMIN SERUM 1.9 g/dL (3.5-5.0); BILIRUBIN,TOTAL 0.8 mg/dL (0.2-2.0); BUN/CREATININE RATIO 21.25; CALCIUM SERUM 7.4 mg/dL (8.4-10.2); CREATININE SERUM 0.8 mg/dL (0.6-1.4); GLOM FILT RATE Estimated 83.1 mL/min (>60); MAGNESIUM 1.5 mg/dL (1.6-3.0); PHOSPHOROUS 2.7 mg/dL (2.5-4.6); POTASSIUM 3.3 mmol/L (3.5-5.1); PROTEIN TOTAL SERUM 4.6 g/dL (6.0-8.3)
[2016-12-07 07:37] LABS: ARTERIAL BLOOD GAS PCO2 50.4 mmHg (35.0-45.0); ARTERIAL BLOOD GAS pH 7.334 (7.350-7.450)
[2016-12-07 07:38] LABS: ARTERIAL BLD GAS O2 SATURATION 88.4 % (90.0-100.0); ARTERIAL BLOOD GAS ART SITE RIGHT RADIAL; ARTERIAL BLOOD GAS CARBOXY HB 0.7 %sat (0.0-9.0); ARTERIAL BLOOD GAS HCO3 26.8 mmol/L; ARTERIAL BLOOD GAS MET HB 0.9 %sat (0.0-2.0); ARTERIAL BLOOD GAS PO2 55.9 mmHg (80.0-100); ARTERIAL DRAW? YES
[2016-12-08 03:53] LABS: BASOPHIL% 0.3 % (0-2.5); EOSINOPHIL# 0.1 X10e3 (0-0.7); EOSINOPHIL% 0.7 % (0.0-7.0); HEMATOCRIT 30.2 % (35.0-45.0); LYMPHOCYTE# 0.7 X10e3 (1.0-3.5); LYMPHOCYTE% 5.5 % (17.0-45.0); MEAN CORPUSCULAR HEMOGLOBIN 29.7 PG (28-34); MEAN PLATELET VOLUME 8.4 FL (6.5-11.5); MONOCYTE# 0.5 X10e3 (0-1.0); MONOCYTE% 4.5 % (3.0-12.0); NEUTROPHIL# 10.5 X10e3 (1.5-7.1); RED BLOOD COUNT 3.36 X10e (3.90-5.30); RED CELL DISTRIBUTION WIDTH 16.4 % (11.0-15.5); WHITE BLOOD COUNT 11.8 X10e3 (4.0-10.5)
[2016-12-08 03:58] LABS: DIFF IND NO; PLATELET COUNT 158 X10e3 (140-420)
[2016-12-08 04:16] LABS: ALBUMIN SERUM 1.9 g/dL (3.5-5.0); BILIRUBIN,TOTAL 0.9 mg/dL (0.2-2.0); BUN/CREATININE RATIO 21.25; CALCIUM SERUM 7.5 mg/dL (8.4-10.2); CREATININE SERUM 0.8 mg/dL (0.6-1.4); GLOM FILT RATE Estimated 83.1 mL/min (>60); MAGNESIUM 1.2 mg/dL (1.6-3.0); PHOSPHOROUS 1.4 mg/dL (2.5-4.6); POTASSIUM 3.3 mmol/L (3.5-5.1); PROTEIN TOTAL SERUM 4.6 g/dL (6.0-8.3)
[2016-12-08 15:45] LABS: MAGNESIUM 2.4 mg/dL (1.6-3.0)
[2016-12-08 15:46] LABS: POTASSIUM 3.1 mmol/L (3.5-5.1)
[2016-12-09] MEDS ORDERED: TIZANIDINE HCL4 M1 PO (00:24)
[2016-12-09] MEDS ORDERED: MELOXICAM15 MG PO (00:25)
[2016-12-09] MEDS ORDERED: AMBIEN10 MG PO (00:26)
[2016-12-09] MEDS ORDERED: DESYREL50 MG PO (00:26)
[2016-12-09] MEDS ORDERED: NEURONTIN PO (00:27)
[2016-12-09] MEDS ORDERED: FLEXERIL10 MG PO (00:29)
[2016-12-09] MEDS ORDERED: HYDROCODON-ACE1 EA14 PO (00:29)
[2016-12-09 01:41] LABS: BASOPHIL% 0.2 % (0-2.5); EOSINOPHIL# 0.2 X10e3 (0-0.7); EOSINOPHIL% 1.9 % (0.0-7.0); HEMATOCRIT 30.5 % (35.0-45.0); HEMOGLOBIN 10.1 gm/dL (12.0-16.0); LYMPHOCYTE# 0.7 X10e3 (1.0-3.5); LYMPHOCYTE% 7.4 % (17.0-45.0); MEAN CELL VOLUME 89.4 FL (83-96); MEAN CORPUSCULAR HEMOGLOBIN 29.7 PG (28-34); MEAN CORPUSCULAR HGB CONC 33.2 g/dL (30-36); MEAN PLATELET VOLUME 8.2 FL (6.5-11.5); MONOCYTE# 0.5 X10e3 (0-1.0); MONOCYTE% 5.5 % (3.0-12.0); PLATELET COUNT 197 X10e3 (140-420); RED BLOOD COUNT 3.41 X10e (3.90-5.30); RED CELL DISTRIBUTION WIDTH 16.3 % (11.0-15.5); WHITE BLOOD COUNT 9.4 X10e3 (4.0-10.5)
[2016-12-09 01:44] LABS: DIFF IND NO
[2016-12-09 02:02] LABS: ALBUMIN SERUM 2.2 g/dL (3.5-5.0); BUN/CREATININE RATIO 31.66; CALCIUM SERUM 7.4 mg/dL (8.4-10.2); CREATININE SERUM 0.6 mg/dL (0.6-1.4); GLOM FILT RATE Estimated 102.6 mL/min (>60); MAGNESIUM 1.5 mg/dL (1.6-3.0); PHOSPHOROUS 1.3 mg/dL (2.5-4.6); POTASSIUM 3.2 mmol/L (3.5-5.1); PROTEIN TOTAL SERUM 5.4 g/dL (6.0-8.3)
[2016-12-09 02:35] LABS: FOLATE (FOLIC ACID) 6.3 ng/mL (>5.8)
[2016-12-09 09:20] LABS: MAGNESIUM 1.8 mg/dL (1.6-3.0); PHOSPHOROUS 2.5 mg/dL (2.5-4.6); POTASSIUM 3.9 mmol/L (3.5-5.1)
[2016-12-10 04:40] LABS: ARTERIAL BLOOD GAS CARBOXY HB 1.2 %sat (0.0-9.0); ARTERIAL BLOOD GAS HCO3 23.4 mmol/L; ARTERIAL BLOOD GAS MET HB 0.6 %sat (0.0-2.0); ARTERIAL BLOOD GAS PCO2 30.2 mmHg (35.0-45.0); ARTERIAL BLOOD GAS PO2 58.1 mmHg (80.0-100); ARTERIAL BLOOD GAS pH 7.497 (7.350-7.450); ARTERIAL DRAW? YES
[2016-12-10 04:41] LABS: ARTERIAL BLOOD GAS ART SITE RIGHT BRACHIAL; ARTERIAL BLOOD GAS DELIVERY ROOM AIR
[2016-12-10 06:52] LABS: BASOPHIL% 0.4 % (0-2.5); EOSINOPHIL# 0.2 X10e3 (0-0.7); EOSINOPHIL% 1.8 % (0.0-7.0); HEMATOCRIT 30.6 % (35.0-45.0); HEMOGLOBIN 10.4 gm/dL (12.0-16.0); LYMPHOCYTE# 0.8 X10e3 (1.0-3.5); LYMPHOCYTE% 8.9 % (17.0-45.0); MEAN CELL VOLUME 89.7 FL (83-96); MEAN CORPUSCULAR HEMOGLOBIN 30.4 PG (28-34); MEAN CORPUSCULAR HGB CONC 33.9 g/dL (30-36); MEAN PLATELET VOLUME 7.7 FL (6.5-11.5); MONOCYTE# 0.7 X10e3 (0-1.0); MONOCYTE% 7.8 % (3.0-12.0); NEUTROPHIL# 7.4 X10e3 (1.5-7.1); NEUTROPHIL% 81.1 % (40-75); PLATELET COUNT 238 X10e3 (140-420); RED BLOOD COUNT 3.41 X10e (3.90-5.30); RED CELL DISTRIBUTION WIDTH 16.2 % (11.0-15.5); WHITE BLOOD COUNT 9.1 X10e3 (4.0-10.5)
[2016-12-10 06:54] LABS: DIFF IND NO
[2016-12-10 07:34] LABS: ALBUMIN SERUM 2.2 g/dL (3.5-5.0); BILIRUBIN,TOTAL 0.9 mg/dL (0.2-2.0); CALCIUM SERUM 7.7 mg/dL (8.4-10.2); CREATININE SERUM 0.5 mg/dL (0.6-1.4); MAGNESIUM 1.5 mg/dL (1.6-3.0); PHOSPHOROUS 2.7 mg/dL (2.5-4.6); POTASSIUM 3.3 mmol/L (3.5-5.1); PROTEIN TOTAL SERUM 5.6 g/dL (6.0-8.3)
[2016-12-11 08:14] LABS: BUN/CREATININE RATIO 37.5; CALCIUM SERUM 7.8 mg/dL (8.4-10.2); CREATININE SERUM 0.4 mg/dL (0.6-1.4); GLOM FILT RATE Estimated 117.3 mL/min (>60); MAGNESIUM 1.7 mg/dL (1.6-3.0); POTASSIUM 3.9 mmol/L (3.5-5.1)
[2016-12-12 07:35] LABS: CALCIUM SERUM 7.7 mg/dL (8.4-10.2); CREATININE SERUM 0.5 mg/dL (0.6-1.4); POTASSIUM 4.1 mmol/L (3.5-5.1)
[2016-12-13 07:40] LABS: BASOPHIL# 0.1 X10e3 (0-0.3); BASOPHIL% 0.9 % (0-2.5); EOSINOPHIL# 0.1 X10e3 (0-0.7); EOSINOPHIL% 1.3 % (0.0-7.0); HEMATOCRIT 27.7 % (35.0-45.0); HEMOGLOBIN 9.2 gm/dL (12.0-16.0); LYMPHOCYTE# 0.8 X10e3 (1.0-3.5); LYMPHOCYTE% 10.8 % (17.0-45.0); MEAN CELL VOLUME 90.1 FL (83-96); MEAN CORPUSCULAR HEMOGLOBIN 29.9 PG (28-34); MEAN CORPUSCULAR HGB CONC 33.1 g/dL (30-36); MEAN PLATELET VOLUME 8.5 FL (6.5-11.5); MONOCYTE# 0.9 X10e3 (0-1.0); MONOCYTE% 12.6 % (3.0-12.0); NEUTROPHIL# 5.3 X10e3 (1.5-7.1); NEUTROPHIL% 74.4 % (40-75); PLATELET COUNT 385 X10e3 (140-420); RED BLOOD COUNT 3.07 X10e (3.90-5.30); RED CELL DISTRIBUTION WIDTH 15.7 % (11.0-15.5); WHITE BLOOD COUNT 7.2 X10e3 (4.0-10.5)
[2016-12-13 07:45] LABS: DIFF IND NO
[2016-12-13 08:05] LABS: CALCIUM SERUM 7.8 mg/dL (8.4-10.2); CREATININE SERUM 0.4 mg/dL (0.6-1.4); GLOM FILT RATE Estimated 117.3 mL/min (>60); MAGNESIUM 1.4 mg/dL (1.6-3.0); POTASSIUM 4.2 mmol/L (3.5-5.1)
[2016-12-14 09:27] LABS: HEMATOCRIT 28.5 % (35.0-45.0); HEMOGLOBIN 9.4 gm/dL (12.0-16.0); MEAN CELL VOLUME 89.9 FL (83-96); MEAN CORPUSCULAR HEMOGLOBIN 29.7 PG (28-34); MEAN PLATELET VOLUME 8.4 FL (6.5-11.5); RED BLOOD COUNT 3.17 X10e (3.90-5.30); RED CELL DISTRIBUTION WIDTH 15.6 % (11.0-15.5); WHITE BLOOD COUNT 9.4 X10e3 (4.0-10.5)
== END 2016-12-14 14:59 | DRG 853 ==
LOC: CED 15:32 → CICCU3 19:40 → CEDOF 19:40 → C5C 19:40 → CEDOF 20:13 → CED 20:13 → CEDOF 23:01 → CICCU2 23:01 → CICCU3 12-03 03:19 → C5C 12-09 19:49
PROVIDERS: Emergency Medicine; Family Medicine; Internal Medicine; Internal Medicine Cardiovascular Disease; Internal Medicine Infectious Disease; Internal Medicine Nephrology; Internal Medicine Pulmonary Disease; Nurse Practitioner; Surgery
PROC: 5A1945Z Respiratory Ventilation, 24-96 Consecutive Hours (ICD-10-PCS; principal; 2016-12-02)
PROC: 0BH17EZ Insertion of Endotracheal Airway into Trachea, Via Natural or Artificial Opening (ICD-10-PCS; 2016-12-02)
PROC: 0BH17EZ Insertion of Endotracheal Airway into Trachea, Via Natural or Artificial Opening (ICD-10-PCS; 2016-12-02)
PROC: 5A1945Z Respiratory Ventilation, 24-96 Consecutive Hours (ICD-10-PCS; 2016-12-02)
PROC: 0DU90JZ Supplement Duodenum with Synthetic Substitute, Open Approach (ICD-10-PCS; 2016-12-03)
PROC: 3E1M38Z Irrigation of Peritoneal Cavity using Irrigating Substance, Percutaneous Approach (ICD-10-PCS; 2016-12-03)
PROC: 30233J1 Transfusion of Nonautologous Serum Albumin into Peripheral Vein, Percutaneous Approach (ICD-10-PCS; 2016-12-03)
PROC: B24BZZZ Ultrasonography of Heart with Aorta (ICD-10-PCS; 2016-12-03)
PROC: 5A1D00Z (ICD-10-PCS; 2016-12-03)
PROC: 30233N1 Transfusion of Nonautologous Red Blood Cells into Peripheral Vein, Percutaneous Approach (ICD-10-PCS; 2016-12-04)
PROC: 0DH67UZ Insertion of Feeding Device into Stomach, Via Natural or Artificial Opening (ICD-10-PCS; 2016-12-05)
PROC: 0B9J8ZZ Drainage of Left Lower Lung Lobe, Via Natural or Artificial Opening Endoscopic (ICD-10-PCS; 2016-12-11)
PROC: 0B9J8ZX Drainage of Left Lower Lung Lobe, Via Natural or Artificial Opening Endoscopic, Diagnostic (ICD-10-PCS; 2016-12-11)
PROC: 3E1F88Z Irrigation of Respiratory Tract using Irrigating Substance, Via Natural or Artificial Opening Endoscopic (ICD-10-PCS; 2016-12-11)
DX: A41.9 Sepsis, unspecified organism (principal); K26.5 Chronic or unspecified duodenal ulcer with perforation; K72.00 Acute and subacute hepatic failure without coma; R65.21 Severe sepsis with septic shock; G92 Toxic encephalopathy; J15.212 Pneumonia due to Methicillin resistant Staphylococcus aureus; J96.01 Acute respiratory failure with hypoxia; J96.02 Acute respiratory failure with hypercapnia; K65.9 Peritonitis, unspecified; N17.9 Acute kidney failure, unspecified; M62.82 Rhabdomyolysis; E87.2 Acidosis; N39.0 Urinary tract infection, site not specified; R47.01 Aphasia; E87.1 Hypo-osmolality and hyponatremia; F17.210 Nicotine dependence, cigarettes, uncomplicated; E86.1 Hypovolemia; R74.0 Nonspecific elevation of levels of transaminase and lactic acid dehydrogenase [LDH]; F10.20 Alcohol dependence, uncomplicated; K58.9 Irritable bowel syndrome, unspecified; G89.29 Other chronic pain; E87.5 Hyperkalemia; Z90.710 Acquired absence of both cervix and uterus; E16.2 Hypoglycemia, unspecified; D64.9 Anemia, unspecified; R13.10 Dysphagia, unspecified; Z80.9 Family history of malignant neoplasm, unspecified; R62.7 Adult failure to thrive
CPT/HCPCS: 36415; 36556; 36600; 51702; 70450; 71010; 71020; 71250; 74000; 74176; 74241; 80048; 80053; 80061; 80076; 80202; 80307; 81003; 82550; 82553; 82607; 82746; 82803; 82947; 83605; 83690; 83735; 84100; 84132; 84478; 84484; 85014; 85018; 85025; 85027; 85610; 85730; 86850; 86900; 86901; 86923; 87040; 87070; 87077; 87086; 87102; 87106; 87116; 87186; 87205; 87206; 87340; 88108; 88305; 88312; 89190; 92526; 92610; 93005; 93306; 94002; 94003; 94660; 94760; 94761; 96365; 96366; 96367; 96375; 97110; 97112; 97116; 97163; 97165; 97530; 97535; 99291; 99292; C9113; G0480; G8996-GN; G8997-GN; G8998-GN; J0330; J0610; J1450; J1815; J2248; J2250; J2270; J2370; J2543; J3010; J3370; J3475; J3480; P9016; P9047